=== PATIENT | male | born 1945 ===

== ENCOUNTER 2020-03-09 10:24 | Inpatient (IN) | payer OTHER ==
--- OUTSIDE RECORDS SUMMARY | 2020-03-09 10:26 | XMS REPORT | Clinical Summary ---
:1945 Author Organization [facility] Address [address] [place] [address] Care Team Providers Name Role Phone Gerald Mejias MD Primary Care Provider Allergies Active Allergy Reactions Severity Noted Date Comments Atorvastatin 08/15/2018 Altered mental status Medications Medication Sig Dispensed Refills Start Date End Date Status pravastatin TAKE 1 TABLET BY 1 08/01/2018 Active (PRAVACHOL) 20 MG MOUTH EVERYDAY AT tablet BEDTIME DULoxetine (CYMBALTA) Take 60 mg by 1 07/13/2018 Active 60 MG capsule mouth nightly. gabapentin (NEURONTIN) Take 800 mg by 0 Active 800 mg tablet mouth daily. levothyroxine TAKE 1 TABLET BY 1 05/18/2018 Active (SYNTHROID, LEVOXYL) MOUTH EVERY DAY ON 25 mcg tablet EMPTY STOMACH IN THE MORNING morPHINE (MS CONTIN) TAKE ONE CAPSULE 0 08/10/2018 Active 30 MG 12 hr tablet BY MOUTH EVERY 12 HOURS oxyCODone (ROXICODONE) Take 15 mg by 0 Active 15 MG immediate mouth every 6 release tablet (six) hours as needed. pantoprazole Take 40 mg by 1 05/15/2018 Ac tive (PROTONIX) 40 MG EC mouth daily. tablet ramipril (ALTACE) 2.5 Take 2.5 mg by 0 Active MG capsule mouth. clopidogrel (PLAVIX) Take 75 mg by 0 08/07/2018 Active 75 mg tablet mouth daily. aspirin (ECOTRIN) 81 Take 81 mg by 0 Active MG enteric coated mouth daily. tablet baclofen (LIORESAL) 10 Take 10 mg by 0 Active MG tablet mouth daily. ciprofloxacin-dexameth Administer 4 drops 0 Active asone (CIPRODEX) into the left ear 0.3-0.1 % otic 2 (two) times a suspension day. Active Problems Not on file Surgical History Surgery Date Site/Laterality Comments INNER EAR SURGERY 11 surgeries TONSILLECTOMY BACK SURGERY X4 CARDIAC CATHETERIZATION 08/16/2018 N/A Procedur e: CV LEFT HEART CATH LV GRAM WITH CORS; Surgeon: Marty Mejía MD; Loc ation: [facility] LOC ATION; Service: Cardiology; Lat erality: N/A; Medical History Medical History Date Comments Carotid stenosis, left Left ventricular diastolic dysfunction Hyperlipidemia Hypertension COPD (chronic obstructive pulmonary disease) (HCC) Hypothyroid Lumbar radiculopathy Intermittent claudication (HCC) Stroke (HCC) 2016 Family History Medical History Relation Name Comments Heart attack Brother Heart attack Brother Heart attack Father Stroke Mother Breast cancer Sister Relation Name Status Comments Brother Brother Father Mother Sister Social History Tobacco Use Types Packs/Day Years Used Date Current Every Day Smoker 1 55 Smokeless Tobacco: Never Used Tobacco Cessation: Ready to Quit: No Alcohol Use Drinks/Week oz/Week Comments Not Currently Sex Assigned at Date Recorded Not on file Last Filed Vital Signs Not on file Plan of Treatment Health Maintenance Due Date Last Done Comments COVID-19 VACCINE (#1) 1961 COLONOSCOPY SCREENING 07/06/1995 SHINGLES VACCINES (#1) 07/06/1995 65+ PNEUMOCOCCAL VACCINE (1 of 1 - PPSV23) 2010 INFLUENZA VACCINE 10/20/2019 Results Not on fileafter 03/09/2019 Advance Directives For more information, please contact: [phone] Type Date Recorded Patient Key Sander Explanati on Advance Directives, Living Will 07/18/2018 7:09 AM and Medical Power of Rn Perinatal
--- OUTSIDE RECORDS SUMMARY | 2020-03-09 10:26 | XMS REPORT | Clinical Summary ---
:1945 Author Organization [facility] Address [address] [place] [address] Care Team Providers Name Role Phone Veronika Mejias MD Primary Care Provider [phone] Allergies No Known Allergies Medications Medication Sig Dispensed Refills Start Date End Date Status ranitidine (ZANTAC) 150 Take 150 mg by 0 Active MG capsuleIndications: mouth 2 (two) gastroesophageal reflux times daily. disease ramipril (ALTACE) 2.5 MG Take 2.5 mg by 0 Active capsuleIndications: mouth daily. hypertension levothyroxine (SYNTHROID, Take 25 mcg by 0 Active LEVOTHROID) 25 MCG tablet mouth Every morning on an empty stomach . DULoxetine (CYMBALTA) 60 Take 60 mg by 0 Active MG capsule mouth nightly . gabapentin (NEURONTIN) Take 800 mg by 0 Active 800 MG tablet mouth 2 (two) times daily . morphine (MS CONTIN) 30 Take 30 mg by 0 Active MG 12 hr tablet mouth every 12 (twelve) hours. clopidogrel (PLAVIX) 75 Take 75 mg by 0 Active mg tablet mouth every morning. oxyCODONE (ROXICODONE) 15 Take 15 mg by 0 Active MG immediate release mouth every 8 tablet (eight) hours as needed . aspirin 81 MG EC tablet Take 81 mg by 0 Active mouth daily. multivitamin per tablet Take 1 tablet 0 Active by mouth daily. risperiDONE (RISPERDAL) 1 Take 1 mg by 0 Active MG tablet mouth 2 (two) times daily. Active Problems Problem Noted Date Pneumonia due to infectious organism, unspecified late rality, unspecified 12/17/2018 part of lung Hypokalemia 10/10/2017 Fecal impaction 10/09/2017 Precordial chest pain 09/26/2015 Cerebral infarction due to unspecified mechanism 02/09 Back pain 02/06/2013 Leg pain, left 02/05/2013 Degenerative lumbar spinal stenosis 11/24/2012 Hypertension Thyroid disease Lumbar stenosis Diverticulitis Arthritis Hx of colonic polyps Skin cancer Immunizations Name Administration Dates Next Due Influenza Four-QIV PF 3YR+ 12/25/2018 Influenza High Dose Preservative Free [id number]/09/2015 Tdap 05/02/2016 Family History Medical History Relation Name Comments Heart attack Father Heart disease Father Heart disease Mother Stroke Mother Relation Name Status Comments Brother Daughter Alive Father Mother Son Alive Son Alive Social History Tobacco Use Types Packs/Day Years Used Date Current Every Day Smoker Cigarettes 2 54 Sta rted: 03/21/1959 Smokeless Tobacco: Never Used Tobacco Cessation: Ready to Quit: No; Co unseling Given: Yes Alcohol Use Drinks/Week oz/Week Comments No 0.0 Occasional - buy s a 6 pack and only drinks 1 beer in a weeks time, cl aims different alcohol intake Sex Assigned at Date Recorded Not on file Last Filed Vital Signs Not on file Plan of Treatment Health Maintenance Due Date Last Done Comments COLON CANCER SCREENING COLONOSCOPY 1945 PNEUMOCOCCAL 65+ YRS (1 of - 2010 [id number]) MEDICARE ANNUAL WELLNESS (YEAR 2 or FIRST 03/22/2013 YEAR if no IPPE) INFLUENZA VACCINE (#1) 2019 12/25/2018, 02/09/2015 Implants Implanted Type Area Skills Auditor Device Shelf Model / Serial / Identifier Expiration Lot Date Allograft,Moldable April Elite 5cc Medium - [id number] 3 Bone N/A: MUSCULOSKELETAL 11/14/2013 [id number] / Implanted: Qty: 1 on 11/24/2012 by Armando Skaggs MD at [facility] Back TRANSPLANT [id number] / Allograft,Moldable April Elite 15cc Xlarge - [id number] 01 Bone N/A: MUSCULOSKELETAL 11/10/2013 [id number] / Implanted: Qty: 1 on 11/24/2012 by Armando Skaggs MD at [facility] Back TRANSPLANT [id number] / Allograft,Moldable April Elite 15cc Xlarge - [id number] 08 Bone N/A: MUSCULOSKELETAL 11/10/2013 137363 / Implanted: Qty: 1 on 11/24/2012 by Armando Skaggs MD at [facility] Back TRANSPLANT [id number] / Allograft,Moldable April Elite 15cc Xlarge - [id number] 02 Bone N/A: MUSCULOSKELETAL 11/10/2013 [id number] / Implanted: Qty: 1 on 11/24/2012 by Armando Skaggs MD at [facility] Back TRANSPLANT [id number] / Allograft,Moldable April Elite 15cc Xlarge - [id number] 10 Bone Left: MUSCULOSKELETAL 01/12/2014 [id number] / Implanted: Qty: 1 on 02/06/2013 by Armando Skaggs MD at [facility] Spine TRANSPLANT [id number] / Lumbar Allograft,Moldable April Elite 15cc Xlarge - [id number] 10 Bone N/A: MUSCULOSKELETAL 07/04/2014 129738 / Implanted: Qty: 1 on 08/15/2013 by Armando Skaggs MD at [facility] Spine TRANSPLANT [id number] / Lumbar Allograft,Moldable April Elite 5cc Medium - [id number] 7 Bone N/A: MUSCULOSKELETAL 07/30/2014 [id number] / Implanted: Qty: 1 on 08/15/2013 by Armando Skaggs MD at [facility] Spine TRANSPLANT [id number] / Lumbar Allograft,Moldable April Elite 10cc Large - [id number] 1 Bone N/A: MUSCULOSKELETAL 08/01/2014 036792 / Implanted: Qty: 1 on 08/15/2013 by Armando Skaggs MD at [facility] Spine TRANSPLANT [id number] / Lumbar Putty,Collage 5cc - [id number] Cement/ N/A: [employer] 07/18/2013 105346 / Implanted: Qty: 1 on 11/24/2012 by Armando Skaggs MD at [facility] Filler/ Back / Adhesiv [id number] 33 e Putty,Collage 15cc - [id number] Cement/ N/A: [employer] 03/19/2014 099014 / Implanted: Qty: 1 on 11/24/2012 by Armando Skaggs MD at [facility] Filler/ Back / Adhesiv [id number] 87 e Putty,Collage 5cc - [id number] Cement/ N/A: [employer] 03/19/2013 299574 / Implanted: Qty: 1 on 11/24/2012 by Armando Skaggs MD at [facility] Filler/ Back / Adhesiv [id number] 99 e Putty,Collage 15cc - [id number] Cement/ N/A: [employer] 03/19/2013 458672 / Implanted: Qty: 1 on 11/24/2012 by Armando Skaggs MD at [facility] Filler/ Back / Adhesiv [id number] 96 e Putty,Collage 15cc - [id number] Cement/ N/A: [employer] 04/19/2014 883146 / Implanted: Qty: 1 on 08/15/2013 by Armando Skaggs MD at [facility] Filler/ Spine / Adhesiv Lumbar [id number] 50 e Spacer,Peek [id number] - [id number] Spine N/A: [employer] 11/17/2016 89-9011SP / Implanted: Qty: 1 on 11/24/2012 by Armando Skaggs MD at [facility] Back / E02 Spacer,Peek [id number] - [id number] Spine N/A: [employer] 05/18/2016 89-9014SP / Implanted: Qty: 1 on 11/24/2012 by Armando Skaggs MD at [facility] Back / R03 Spacer,Peek [id number] - [id number] Spine N/A: [employer] 05/18/2016 89-9014SP / Implanted: Qty: 1 on 11/24/2012 by Armando Skaggs MD at [facility] Back / R03 Spacer,Peek [id number] - [id number] Spine N/A: [employer] 05/18/2016 89-9014SP / Implanted: Qty: 1 on 11/24/2012 by Armando Skaggs MD at [facility] Back / R03 Spacer,Peek [id number] - [id number] Spine N/A: [employer] 05/18/2016 89-9014SP / Implanted: Qty: 1 on 11/24/2012 by Armando Skaggs MD at [facility] Back / R03 Spacer,Peek [id number] - [id number] Spine N/A: [employer] 11/18/2015 89-9009SP / Implanted: Qty: 1 on 11/24/2012 by Armando Skaggs MD at [facility] Back / R01 Spacer,Peek [id number] - [id number] Spine N/A: [employer] 11/18/2015 89-9009SP / Implanted: Qty: 1 on 11/24/2012 by Armando Skaggs MD at [facility] Back / R01 Screw,Multiaxial Selftap Firebird 6.5x50mm - [id number] Spine N/A: [employer] 44-3650 / Implanted: Qty: 5 on 11/24/2012 at [facility] Spine / Lumbar Screw,Multiaxial Selftap Firebird 6.5x45mm - [id number] Spine N/A: [employer] 44-3645 / Implanted: Qty: 1 on 11/24/2012 at [facility] Spine / Lumbar Description:1 in/out Screw,Multiaxial Selftap Firebird 7.5x35mm - [id number] Spine N/A: Spine Lumbar [employer] 44-3735 / Implanted: Qty: 1 on 11/24/2012 at [facility] / Description:1 in/out Screw,Multiaxial Selftap Firebird 8.5x40mm - [id number] Spine N/A: Spine Lumbar [employer] 44-3840 / Implanted: Qty: 1 on 11/24/2012 at [facility] / Screw,Multi-Axial Selftap Firebird 6.5x55mm - [id number] Spine N/A: Spine Lumbar [employer] 44-3655 / Implanted: Qty: 2 on 11/24/2012 at [facility] / Screw,Multiaxial Selftap Firebird 7.5x45mm - [id number] Spine N/A: Spine Lumbar [employer] 44-3745 / Implanted: Qty: 1 on 11/24/2012 at [facility] / Screw,Multiaxial Selftap Firebird 7.5x40mm - [id number] Spine N/A: Spine Lumbar [employer] 44-3740 / Implanted: Qty: 1 on 11/24/2012 at [facility] / Set Screw,Firebird Ti Closure Top - [id number] Spine N/A : Spine Lumbar [employer] 44-2001 / Implanted: Qty: 10 on 11/24/2012 at [facility] / [place],Spinal Firebird Ti 5.5k313zk - [id number] Spine N/A: Spine Lumbar [employer] 52-2160 / Implanted: Qty: 1 on 11/24/2012 at [facility] / Description:bent, in/out [place],Spinal Firebird Ti 5.6g276oe - [id number] Spine N/A: Spine Lumbar [employer] 52-2140 / Implanted: Qty: 1 on 11/24/2012 at [facility] / [facility],Cross Multi Axial 55mm - [id number] Spine N/A: Spine Lumbar [employer] 55-5355 / Implanted: Qty: 1 on 11/24/2012 at [facility] / [facility],Cross Multi Axial 65mm - [id number] Spine N/A: Spine Lumbar [employer] 55-5365 / Implanted: Qty: 2 on 11/24/2012 at [facility] / Spacer,Peek [id number] - [id number] Spine N/A: Back [employer] 11/17/2016 89- 9011SP / Implanted: Qty: 1 on 11/24/2012 by Armando Skaggs MD at [facility] / E02 Set Screw,Firebird Ti Closure Top - [id number] Spine Lef t: Spine Lumbar [employer] 44-2000 / Implanted: Qty: 4 on 02/06/2013 by Armando Skaggs MD at [facility] Axial 60mm - [id number] Spine Left : Spine Lumbar [employer] 55-5360 / Implanted: Qty: 1 on 02/06/2013 by Armando Skaggs MD at [facility] Multi Axial 55mm - [id number] Spine Left : Spine Lumbar [employer] 55-5355 / Implanted: Qty: 1 on 02/06/2013 by Armando Skaggs MD at [facility] / [facility],Cross Multi Axial 65mm - [id number] Spine Left : Spine Lumbar [employer] 55-5365 / Implanted: Qty: 1 on 02/06/2013 by Armando Skaggs MD at [facility] / Set Screw,Firebird Ti Closure Top - [id number] Spine [employer] 44-2000 / Implanted: Qty: 7 on 08/15/2013 by Blane Merino PA-C at [facility] / [place],Spinal Firebird Ti Pre-Lordosed 5.4a424ps - [id number] Spi ne N/A: Spine Lumbar [employer] 52-6120 / Implanted: Qty: 1 on 08/15/2013 by Armando Skaggs MD at [facility] / [place],Spinal Firebird Ti Pre-Lordosed 5.5x80mm - [id number] Spine N/A: Spine Lumbar [employer] 52-6080 / Implanted: Qty: 1 on 08/15/2013 by Armando Skaggs MD at [facility] / [facility],Cross Multi Axial 60mm - [id number] Spine N/A: Spine Lumbar [employer] 55-5360 / Implanted: Qty: 1 on 08/15/2013 by Armando Skaggs MD at [facility] / [facility],Cross Multi Axial 55mm - [id number] Spine N/A: Spine Lumbar [employer] 55-5355 / Implanted: Qty: 1 on 08/15/2013 by Armando Skaggs MD at [facility] / Results Not on fileafter 03/09/2019 Insurance Payer Benefit Plan Subscriber ID Effective Phone Address Typ e / Group Dates [employer]ET[employer] - AETNA [id number] 2017-Prese [phone] [address] [employer] MEDICARE MGD MEDICARE OPEN nt 12 [id number] Non-Contr [place] [phone] AET[employer] - AETNA [id number] 03/21/2018-Prese [phone] [address] MEDICARE D MEDICARE HMO nt 12 [id number] [place] [address] Advance Directives For more information, please contact: [phone] Code Status Date Activated Date Inactivated Comments Full Code 12/17/2018 11:12 PM 12/25/2018 5:51 PM This code status was determined by: Patient Full Code 10/09/2017 7:26 PM 10/11/2017 1:43 PM This code status was determined by: Patient Full Code 09/26/2015 8:47 PM 09/27/2015 6:46 PM This code status was determined by: Patient Full Code 02/09/2015 1:59 AM 02/10/2015 9:15 PM This code status was determined by: Patient Code ONE 08/15/2013 5:26 PM 08/17/2013 3:00 PM All possib le means of support, including: cardi ac massage, mechanical ventilation, and defibrillation will be used to suppo rt life.
--- OUTSIDE RECORDS SUMMARY | 2020-03-09 10:29 | XMS REPORT | Continuity of Care Document ---
:1945 Author Organization [facility] t Address [address] [place] [address] Care Team Providers Name Role Phone Randell HARRIS, Jania Duarte Primary Care Physician [phone] STEFANO ROMERO Attending Clinician Unavailable SYMONE CASAS Attending Clinician Unavailable BAY ESTRADA Attending Clinician Unavailable ANGELA Admitting Clinician Unavailable CARINA Admitting Clinician Unavailable Payers Payer Name Policy Type Policy Number Effective Date Expiration Date S ource Problems Condition Condition Condition Status Onset Resolution Last Treating Co mments Source Name Details Category Date Date Treatment Clinician Date Pneumonia Pneumonia Disease Active [facility] infectious infectious 00:00: Me dical organism, organism, 00 Cent er unspecifie unspecifie d d laterality laterality , , unspecifie unspecifie d part of d part of lung lung Hypokalemi Hypokalemi Disease Active [facility] a a 10[facility]10 [facility] Center Fecal Fecal Disease Active [facility] impaction impaction 10-09 [facility] - 00:00: Medical 00 Center Precordial Precordial Disease Active [facility] chest pain chest pain 09-25 Mellisa kes - 00:00: Medical 00 [place] Cerebral Cerebral Disease Active 2014-03 [facility] infarction infarction 04-[address] 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 St disease disease [facility] Lumbar Lumbar Disease Active [facility] stenosis stenosis [facility] Diverticul Diverticul Disease Active [facility] itis itis [facility] Arthritis Arthritis Disease Active [facility] Hx of Hx of Disease Active [facility] colonic colonic [facility] polyps polyps [facility] Skin Skin Disease Active [facility] cancer cancer [facility] Allergies, Adverse Reactions, Alerts Allergy Allergy Status Severity Reaction(s) Onset Inactive Treating Comm ents Source Name Type Date Date Clinician No Known DA Active U [facility] Allergie 8-30 Pak s 00:00: Health 00 are [place] Atorvast Propensi Active Altered [place] at[place] ty to 5-28 mental Methodi adverse 00:00: status st reaction 00 s to drug No Known DA Active U 2012-03 [facility] Allergie 0-05 [place] [facility] 00:00: d 00 Medical [place] Family History Family Member Diagnosis Comments Start Date Stop Date Source Natural brother Heart attack [facility] Natural father Heart attack [facility] Natural father Heart disease [facility] Natural mother Stroke [facility] Natural mother Heart disease [facility] Natural mother Stroke [facility] Natural sister Breast cancer [facility] Social History Social Habit Start Date Stop Date Quantity Comments Source History of tobacco 1959-03-[address] [facility] use 00:00:00 smoker [facility] Sex Assigned At [facility] Cigarettes smoked 2017-10-09 2017-10-09 [facility] - current (pack per 00:00:00 00:00:00 Medical Center day) - Reported Cigarette 2017-10-09 2017-10-09 [facility] 00:[facility]:00 00:00:00 [facility] Tobacco use and 2017-10-09 2017-10-[address] [address] Pak kes - exposure 00:00:00 00:00:00 [facility] Alcohol intake 2017-10-09 2017-10-09 Current [facility] Antwan es - 00:00:00 00:00:00 non-drinker of Medical nter alcohol (finding) Alcohol Comment 2015-09-26 2015-09-26 Occasional - buys [facility] - 00:00:00 00:00:00 a 6 pack and only [facility] drinks 1 beer in a weeks time, claims different alcohol intake Smoking Status Start Date Stop Date Source Current every day smoker 2017-10-09 00:00:00 [facility] [place] [facility] Medications Ordered Filled Start Stop Current Ordering Indication Dosage Frequency Signature Comments Components Source Medication Medication Date Date Medication? Clinician (SIG) Name Name ranitidine 2018-03 Yes gastroesoph 150mg Q.5D Take [address] (ZANTAC) 0-07 ageal mg by [facility] - 150 MG 15:51: reflux mouth 2 Medica l capsule 34 disease (two) Center times daily. ramipril 2018-03 Yes hypertensio 2.5mg QD Take 2.[address] (ALTACE) 0-07 n mg by [facility] - 2.5 MG 15:51: mouth Medical capsule 34 daily. [place] levothyroxi 2018-03 Yes 25ug Take [address] ne 0-07 mcg by [facility] - (SYNTHROID, 15:51: mouth Medic al LEVOTHROID) 34 Every Center 25 MCG morning on tablet an empty stomach . DULoxetine 2018-03 Yes 60mg QD Take [address] (CYMBALTA) 0-07 by mouth [facility] - 60 MG 15:51: nightly . Medical capsule 34 Center gabapentin 2018-03 Yes 800mg Q.5D Take [address] (NEURONTIN) 0-07 mg by [facility] - 800 MG 15:51: mouth 2 Medical tablet 34 (two) Center times daily . morphine 2018-03 Yes 30mg Take [address] (MS CONTIN) 0-07 by mouth Luke s - 30 MG 12 hr 15:51: every 12 Me dical tablet 34 (twelve) Center hours. clopidogrel 2018-03 Yes 75mg QD Take [address] (PLAVIX) 75 0-07 by mouth Luke s - mg tablet 15:51: every Medical 34 morning. Center oxyCODONE 2018-03 Yes 15mg Take [address] (ROXICODONE 0-07 by mouth Luke s - ) 15 MG 15:51: every 8 Medical immediate 34 (eight) Center release hours as tablet needed . aspirin 81 2018-03 Yes 81mg QD Take [address] MG EC 0-07 by mouth [facility] - tablet 15:51: daily. Medical 34 Center multivitami 2018-03 Yes 1{tbl} QD Take [address] n per 0-07 tablet by [facility] - tablet 15:51: mouth Medical 34 daily. Center risperiDONE 2018-03 Yes 1mg Q.5D Take [address] (RISPERDAL) 0-07 by mouth 2 Mellisa kes - 1 MG tablet 15:51: (two) Medic al 34 times Center daily. gabapentin Yes 800mg QD Take 800 [place] (NEURONTIN) 5-29 mg by Methodi 800 mg 18:58: mouth st tablet 48 daily. oxyCODone Yes 15mg Q6H Take 15 mg [place] (ROXICODONE 5-29 by mouth Meth ricardo ) 15 MG 18:58: every 6 st immediate 48 (six) release hours as tablet needed. ramipril Yes 2.5mg Take 2.5 [place] (ALTACE) 5-29 mg by Methodi 2.5 MG 18:58: mouth. st capsule 48 aspirin Yes 81mg QD Take 81 mg [place] (ECOTRIN) 5-29 by mouth Method i 81 MG 18:58: daily. st enteric 48 coated tablet baclofen Yes 10mg Take 10 mg [place]ca [facility] (LIORESAL) 5-29 by mouth Metho di 10 MG 18:58: daily. st tablet 48 ciprofloxac Yes 4[drp] Q.5D Administer Pak in-dexameth 5-29 4 drops Metho di asone 18:58: into the st (CIPRODEX) 48 left ear 2 0.3-0.1 % (two) otic times a suspension day. morPHINE Yes TAKE ONE [place] (MS CONTIN) 5-23 CAPSULE BY Me thodi 30 MG 12 hr 00:00: MOUTH st tablet 00 EVERY 12 HOURS clopidogrel 2018- Yes 75mg QD Take 75 mg Pak (PLAVIX) 75 5-20 by mouth Meth ricardo mg tablet 00:00: daily. st 00 pravastatin 2018- Yes TAKE 1 [place] (PRAVACHOL) 5-14 TABLET BY Met hodi 20 MG 00:00: MOUTH st tablet 00 EVERYDAY AT BEDTIME DULoxetine 2018- Yes 60mg QD Take 60 mg [place] (CYMBALTA) 4-25 by mouth Metho di 60 MG 00:00: nightly. st capsule 00 levothyroxi Yes TAKE 1 [place] 2-28 TABLET BY Methodi (SYNTHROID, 00:00: MOUTH st LEVOXYL) 25 00 EVERY DAY mcg tablet ON EMPTY STOMACH IN THE MORNING pantoprazol 2018- Yes 40mg QD Take 40 mg Pak e 2-25 by mouth Methodi (PROTONIX) 00:00: daily. st 40 MG EC 00 tablet Immunizations Ordered Immunization Filled Immunization Date Status Commen ts Source Name Name Influenza Four-QIV 2018-12-[address] [facility] - PF 3YR+ 00:00:00 [facility] Tdap 2016-05-[address] [facility] - 00:00:00 [facility] Influenza High Dose 2015-02-09 [facility] - Preservative Free 00:00:00 [facility] [id number] Procedures This patient has no known procedures. Plan of Care Planned Activity Planned Date Details Comments Source Future Scheduled 2019-11-20 INFLUENZA VACCINE (#1) [facility] Test 00:00:00 [code = INFLUENZA Medical Ce nter VACCINE (#1)] Future Scheduled 2019-10-20 INFL[place]ENZA VACCINE [place] [facility] 00:00:00 [code = INFLUENZA VACCINE] Future Scheduled 2013-03-[address] [facility] - Test 00:00:00 WELLNESS (YEAR 2 or Medical Center FIRST YEAR if no IPPE) [code = MEDICARE ANNUAL WELLNESS (YEAR 2 or FIRST YEAR if no IPPE)] Future Scheduled 2010 65+ PNEUMOCOCCAL [facility] 00:00:00 VACCINE (1 of 1 - PPSV23) [code = 65+ PNEUMOCOCCAL VACCINE (1 of 1 - PPSV23)] Future Scheduled 2010 PNEUMOCOCCAL 65+ Y[facility] - Test 00:00:00 (1 of 1 - [facility] [id number] PCV13) [code = PNEUMOCOCCAL 65+ YRS (1 of 1 - [id number] PCV13)] Future Scheduled 1995-07-06 COLONOSCOPY SCREENING [place] [facility] 00:00:00 [code = COLONOSCOPY SCREENING] Future Scheduled 1995-07-06 SHINGLES VACCINES (#1) [place] [facility] 00:00:00 [code = SHINGLES VACCINES (#1)] Future Scheduled 1961 COVID-19 VACCINE (#1) [place] [facility] 00:00:00 [code = COVID-19 VACCINE (#1)] Future Scheduled [address] [facility] - Test 00:00:00 malignant neoplasm of Medica l Center colon (procedure) [code = 400579678] Results Test Description Test Time Test Comments Results Result Comments Source COVID 19 Asymptomatic IH AG 2019-12-13 12:17:00 Test Item Value Reference Range Interpretation Comme nts COVID 19 Asymptomatic IH AG NEGATIVE Negative NEGATIVE RESULTS SHOULD BE TREATED (test code = COVNONPUIAG) PRESUMPTIVE ANDCONFIRMED WTIH A MOLECULAR ASSAY , IF NECESSARY FOR PATIENTMANAGEME NT. NEGATIVE RESULTS DO NOT RULE OUT COVID-19 ANDSHOULD NOT BE USED THE SOLE BASIS FOR TREATMENT ORPAT IENT MANAGEMENT DECISIONS, INCL UDING INFECTION CONTROLDECISION S. NEGATIVE RESULTS SHOULD BE CONSI DERED IN THECONTEXT OF A PATIENT'S RECENT EXPOSURES, HISTORY AND THE PRESENCE OF CLINICAL SIGNS AND SYMPT OMS CONSISTENT WITHCOVID-19. COVID 19 Asymptomatic IH [id number] 15:21:00 Test Item Value Reference Range Interpretation Comments COVID 19 Asymptomatic NEGATIVE Negative NEGAT ARMANDO RESULTS IH AG (test code = SHOULD BE TREATED COVNONPUIAG) PRESUMPTIVE ANDCONFIRMED WT IH A MOLECULAR ASSAY , IF NECESSARY FOR PATIENTMANAGEME NT. NEGATIVE RESULT S DO NOT RULE OUT CO VID-19 ANDSHOULD NOT B E USED THE SOLE BAS IS FOR TREATMENT ORPAT IENT MANAGEMENT DECI SIONS, INCLUDING INFEC TION CONTROLDECISION S. NEGATIVE RESULT S SHOULD BE CONSI DERED IN THECONTEXT O F A PATIENT'S RECEN T EXPOSURES, HIST ORY AND THEPRESENCE OF CLINICAL SIGNS AND SYMPTOMS CONSIS TENT WITHCOVID-19. VANCOMYCIN [id number] 17:34:00 Test Item Value Reference Range Interpretation Comments VANCOMYCIN TROUGH (test code = 18.7 ug/ml 10.0-20.0 N VANCT) [id number] 13:47:00 Test Item Value Reference Range Interpretation Comments POTASSIUM (test code = K) 3.9 MMOL/L 3.6-5.2 N GROSSLY HEMOLYZEDVANCOMYCIN [id number] 05:54:00 Test Item Value Reference Range Interpretation Comments VANCOMYCIN TROUGH (test code = 15.7 ug/ml 10.0-20.0 N VANCT) VANCOMYCIN [id number] 17:50:00 Test Item Value Reference Range Interpretation Comments VANCOMYCIN TROUGH (test code = 19.9 ug/ml 10.0-20.0 N VANCT) [id number] 13:18:00 Test Item Value Reference Range Interpretation Comments CREATININE (test code = CREAT) 0.69 mg/dL 0.60-1.30 N CBC W/O [id number] 13:06:00 Test Item Value Reference Range Interpretation Comments WHITE BLOOD CELL (test code = WBC) 9.88 K/mm3 5.0-12.0 N RED BLOOD CELL (test code = RBC) 4.59 M/mm3 4.70-6.10 L HEMOGLOBIN (test code = HGB) 13.3 G/DL 14.0-18.0 L HEMATOCRIT (test code = HCT) 39.6 % 38.8-50.0 N MEAN CELL VOLUME (test code = MCV) 86 fL 80-94 N MEAN CELL HGB (test code = MCH) 29.0 PGM 27-31 N MEAN CELL HGB CONCENTRATION (test 33.6 G/DL 33-37 N code = MCHC) RED CELL DISTRIBUTION WIDTH (test 12.7 % 11.6-16.2 N code = RDW) PLATELET COUNT (test code = PLT) 251 K/mm3 130-400 N VANCOMYCIN [id number] 18:03:00 Test Item Value Reference Range Interpretation Comments VANCOMYCIN TROUGH (test code = 15.4 ug/ml 10.0-20.0 N VANCT) BASIC METABOLIC [id number] 06:42:00 Test Item Value Reference Range Interpretation Comments SODIUM (test code 143 mmol/L 136-145 N = NA) POTASSIUM (test 3.1 MMOL/L 3.6-5.2 L code = K) CHLORIDE (test 108 MMOL/L 98-110 N code = CL) CARBON DIOXIDE 28 mEq/L 24-32 N (test code = CO2) GLUCOSE (test code 117 mg/dL 70-110 H = GLU) BLOOD UREA 11 mg/dL 7-18 N NITROGEN (test code = BUN) GLOMERULAR >=60 max >60 The estimated FILTRATION RATE estimate glomerular (test code = GFR) filtration rate is computed usingpatient ra ce, age (>18), sex, and serum creatinin e. If anyof the neede d data elements a re missing the Laboratory ting ot compute an estimation of t he glomerular filtration rate . CREATININE (test 0.79 mg/dL 0.60-1.30 N code = CREAT) CALCIUM (test code 8.4 mg/dL 8.6-10.3 L = CA) BASIC METABOLIC [id number] 06:39:00 Test Item Value Reference Range Interpretation Comments SODIUM (test code mmol/L 136-145 = NA) POTASSIUM (test 3.1 MMOL/L 3.6-5.2 L code = K) CHLORIDE (test MMOL/L 98-110 code = CL) CARBON DIOXIDE mEq/L 24-32 (test code = CO2) GLUCOSE (test code mg/dL 70-110 = GLU) BLOOD UREA 11 mg/dL 7-18 N NITROGEN (test code = BUN) GLOMERULAR >=60 max >60 The estimated FILTRATION RATE estimate glomerular (test code = GFR) filtration rate is computed usingpatient ra ce, age (>18), sex, and serum creatinin e. If anyof the neede d data elements a re missing the Laboratory ting ot compute an estimation of t he glomerular filtration rate . CREATININE (test 0.79 mg/dL 0.60-1.30 N code = CREAT) CALCIUM (test code mg/dL 8.6-10.3 = CA) COVID 19 INHOUSE [id number] 05:54:00 Test Item Value Reference Range Interpretation Comments COVID 19 INHOUSE AG NEGATIVE NEGATIVE NEGATIV E RESULTS SHOULD (test code = BE TREATED P RESUMPTIVE [id number]) ANDCONFIRMED WT IH A MOLECULAR ASSAY , IF NECESSARY FOR PATIENTMANAGEME NT. NEGATIVE RESULT S DO NOT RULE OUT COVID- 19 ANDSHOULD NOT B E USED THE SOLE BASIS FOR TREATMENT ORPAT IENT MANAGEMENT DECI SIONS, INCLUDING INFEC TION CONTROLDECISION S. NEGATIVE RESULT S SHOULD BE CONSIDERED I N THECONTEXT OF A PATIENT'S RECENT EXPOSURE S, HISTORY AND THEPRESENCE OF CLINICAL SIGNS AND SYMPTOMS CONSIS TENT WITHCOVID-19. - XR CHEST 1 [id number] 04:38:00Patient Name: CHIVO INFANTE Unit No: [id number] EXAMS: CPT: [id number] XR CHEST 1 V [id number] Portable chest, 11/19/2019. Clinical: Leukocytosis. Comment: The heart, mediastinum, hilar regions and pulmonary vasculature appear within normal limits. There are bilateral diffuse pulmonary opacities. There is no evidence of pneumothorax. The regional skeleton is unchanged. IMPRESSION: Bilateral diffuse pulmonary opacities. at 0438 Reported and signed by: Xavier Rivero MD CC: Mehul Maurice MD Technologist: Bay Ybarra Time: DAP (Gy m2): Air Kerma (mGy): Trscr Dt/Tm: 11/19/2019 (0438) by:[email or web address] Orig Print D/T: S: 11/19/2019 (0441) BATCH NO: N/A Name: CHIVO INFANTE [facility] [place] Phys: [email or web address] - Mehul Maurice [address] [facility] : 1945 Age: 74 Sex: [place], [place] Loc: T.ERS Exam Date: 11/19/2019 Status: REG ER PH: FAX: PAGE 1 Signed ReportDRUGS OF ABUSE SCREEN [id number] 03:23:00 Test Item Value Reference Range Interpretation Comments UR COCAINE (test code = COCAU) NEGATIVE NEGATIVE UR METHAMPHETAMINE (test code = NEGATIVE NEGATIVE METHAMPHU) UR CANABINOIDS (test code = CANU) NEGATIVE NEGATIVE UR AMPHETAMINE (test code = AMPHU) NEGATIVE NEGATIVE UR BARBITURATE (test code = BARBQLU) NEGATIVE NEGATIVE UR BENZODIAZEPINE (test code = POSITIVE NEGATIVE A BENZU) METHADONE (test code = METHDU) NEGATIVE NEGATIVE PROPOXYPHENE SCREEN (test code = NEGATIVE NEGATIVE PROPXSQ) UR OPIATES QUAL (test code = NEGATIVE NEGATIVE OPIAQLU) OXYCODONE (test code = OXYCOD) NEGATIVE NEGATIVE UR TRICYCLICS (test code = TRICYCU) NEGATIVE NEGATIVE UR PHENCYCLIDINE (PCP) (test code = NEGATIVE NEGATIVE PHENCU) UR BUPRENORPHINE QUAL (test code = NEGATIVE NEGATIVE BUPRESCRT) BASIC METABOLIC [id number] 03:13:00 Test Item Value Reference Range Interpretation Comments SODIUM (test code 144 mmol/L 136-145 N = NA) POTASSIUM (test 3.2 MMOL/L 3.6-5.2 L code = K) CHLORIDE (test 104 MMOL/L 98-110 N code = CL) CARBON DIOXIDE 28 mEq/L 24-32 N (test code = CO2) GLUCOSE (test code 115 mg/dL 70-110 H = GLU) BLOOD UREA 22 mg/dL 7-18 H NITROGEN (test code = BUN) GLOMERULAR >=60 max >60 The estimated FILTRATION RATE estimate glomerular (test code = GFR) filtration rate is computed usingpatient ra ce, age (>18), sex, and serum creatinin e. If anyof the neede d data elements a re missing the Laboratory ting ot compute an estimation of t he glomerular filtration rate . CREATININE (test 0.77 mg/dL 0.60-1.30 N code = CREAT) CALCIUM (test code 9.7 mg/dL 8.6-10.3 N = CA) CREATINE KINASE (CK)2019-11-19 03:13:00 Test Item Value Reference Range Interpretation Comments CREATINE KINASE (CK) 597 UNITS/L 25-140 H UNICEL DxC 600i:DUE TO (test code = CK) THE INSTRUM ENT'S ESTABLISHED SUPRIYA EAR RANGES, ANYPATI ENT RESULT THAT IS ABOVE THE HIGH LINEAR RANGE, MUST BEREPORTED >24,000 IU/L. [id number] 03:13:00 Test Item Value Reference Range Interpretation Comments ACETAMINOPHEN (test code = ACET) < 10.0 ug/mL 10.0-25.0 L [id number] 03:13:00 Test Item Value Reference Range Interpretation Comments SALICYLATE (test code = PEPPER) < 4.0 mg/dL 0.0-30.0 N [id number] 03:13:00 Test Item Value Reference Range Interpretation Comments ALCOHOL (test code = < 5.0 mg/dl 0.0-80.0 N ALC) ~~~~~~~~~~~~~~~ ~~~~~~~ ~~~~~~~~~~~~~~~ ~~~~~~~ ~~~~~~ RESU LTS ARE TO BE USED FOR MEDICAL PURPOSES ONLY.F OR LEGAL PURPOSES THE SPECIMEN MUST B E COLLECTED BY A CHAINOF CUSTODY. LEGAL TESTING IS NOT PERFORME D BY THIS FACILITY. ~~~~~~~~~~~~~~~ ~~~~~~~ ~~~~~~~~~~~~~~~ ~~~~~~~ ~~~~~~ UA RFLX MICR CULT IF [id number] 03:05:00 Test Item Value Reference Range Interpretation Comments UA COLOR (test code = COLU) Yellow YELLOW UA APPEARANCE (test code = CLEAR CLEAR APPU) UA GLUCOSE DIPSTICK (test code NEG MG/DL NEGATIVE = DGLUU) UA BILIRUBIN DIPSTICK (test NEG NEGATIVE code = BILU) UA KETONE DIPSTICK (test code 1+ MG/DL NEGATIVE A = KETU) UA SPECIFIC GRAVITY (test code 1.031 1.000-1.030 A = SGU) UA BLOOD DIPSTICK (test code = TRACE NEGATIVE A TERE) UA PH DIPSTICK (test code = 6.0 4.5-8.5 JESU) UA PROTEIN DIPSTICK (test code 1+ MG/DL NEGATIVE A = PROU) UA UROBILINOGEN DIPSTICK (test NORMAL EU/dL <=1.0 code = URO) UA NITRITE DIPSTICK (test code NEG NEGATIVE = MANDA) UA LEUKOCYTE ESTERASE DIPSTICK NEG NEGATIVE (test code = LEUU) UA WBC (test code = WBCU) 0-3 /HPF 0-3 UA RBC (test code = RBCU) 3-5 /HPF 0-3 A UA WBC CLUMPS (test code = RARE HPF NONE SEEN A WBCUCL) UA BACTERIA (test code = BACU) NONE SEEN /HPF NONE SEEN UA SQUAMOUS CELLS (test code = NONE SEEN /HPF NONE-FEW SQU) UA MUCUS (test code = MUCU) FEW /LPF NONE-FEW Indication for culture: Temperature > 100.4 FBASIC METABOLIC PANEL 2019-11-19 03:05:00 Test Item Value Reference Range Interpretation Comments SODIUM (test code = NA) 144 mmol/L 136-145 N POTASSIUM (test code = K) 3.2 MMOL/L 3.6-5.2 L CHLORIDE (test code = CL) 104 MMOL/L 98-110 N CARBON DIOXIDE (test code = CO2) 28 mEq/L 24-32 N GLUCOSE (test code = GLU) 115 mg/dL 70-110 H BLOOD UREA NITROGEN (test code = mg/dL 7-18 BUN) GLOMERULAR FILTRATION RATE (test >60 code = GFR) CREATININE (test code = CREAT) mg/dL 0.60-1.30 CALCIUM (test code = CA) 9.7 mg/dL 8.6-10.3 N CREATINE KINASE (CK)2019-11-19 03:05:00 Test Item Value Reference Range Interpretation Comments CREATINE KINASE (CK) (test code = UNITS/L 25-140 CK) [id number] 03:05:00 Test Item Value Reference Range Interpretation Comments ACETAMINOPHEN (test code = ACET) ug/mL 10.0-25.0 [id number] 03:05:00 Test Item Value Reference Range Interpretation Comments SALICYLATE (test code = PEPPER) mg/dL 0.0-30.0 [id number] 03:05:00 Test Item Value Reference Range Interpretation Comments ALCOHOL (test code = ALC) mg/dl 0.0-80.0 BASIC METABOLIC [id number] 03:04:00 Test Item Value Reference Range Interpretation Comments SODIUM (test code = NA) mmol/L 136-145 POTASSIUM (test code = K) 3.2 MMOL/L 3.6-5.2 L CHLORIDE (test code = CL) MMOL/L 98-110 CARBON DIOXIDE (test code = CO2) mEq/L 24-32 GLUCOSE (test code = GLU) mg/dL 70-110 BLOOD UREA NITROGEN (test code = mg/dL 7-18 BUN) GLOMERULAR FILTRATION RATE (test >60 code = GFR) CREATININE (test code = CREAT) mg/dL 0.60-1.30 CALCIUM (test code = CA) mg/dL 8.6-10.3 CREATINE KINASE (CK)2019-11-19 03:04:00 Test Item Value Reference Range Interpretation Comments CREATINE KINASE (CK) (test code = UNITS/L 25-140 CK) [id number] 03:04:00 Test Item Value Reference Range Interpretation Comments ACETAMINOPHEN (test code = ACET) ug/mL 10.0-25.0 [id number] 03:04:00 Test Item Value Reference Range Interpretation Comments SALICYLATE (test code = PEPPER) mg/dL 0.0-30.0 [id number] 03:04:00 Test Item Value Reference Range Interpretation Comments ALCOHOL (test code = ALC) mg/dl 0.0-80.0 UA RFLX MICR CULT IF [id number] 03:03:00 Test Item Value Reference Range Interpretation Comments UA COLOR (test code = COLU) Yellow YELLOW UA APPEARANCE (test code = APPU) CLEAR CLEAR UA GLUCOSE DIPSTICK (test code = NEG MG/DL NEGATIVE DGLUU) UA BILIRUBIN DIPSTICK (test code NEG NEGATIVE = BILU) UA KETONE DIPSTICK (test code = 1+ MG/DL NEGATIVE A KETU) UA SPECIFIC GRAVITY (test code = 1.031 1.000-1.030 A SGU) UA BLOOD DIPSTICK (test code = TRACE NEGATIVE A TERE) UA PH DIPSTICK (test code = JESU) 6.0 4.5-8.5 UA PROTEIN DIPSTICK (test code = 1+ MG/DL NEGATIVE A PROU) UA UROBILINOGEN DIPSTICK (test NORMAL EU/dL <=1.0 code = URO) UA NITRITE DIPSTICK (test code = NEG NEGATIVE MANDA) UA LEUKOCYTE ESTERASE DIPSTICK NEG NEGATIVE (test code = LEUU) Indication for culture: Temperature > 100.4 FCBC W/AUTO [id number] 03:01:00 Test Item Value Reference Range Interpretation Comments WHITE BLOOD CELL (test code = 13.39 K/mm3 5.0-12.0 H WBC) RED BLOOD CELL (test code = RBC) 4.80 M/mm3 4.70-6.10 N HEMOGLOBIN (test code = HGB) 13.9 G/DL 14.0-18.0 L HEMATOCRIT (test code = HCT) 42.2 % 38.8-50.0 N MEAN CELL VOLUME (test code = 88 fL 80-94 N MCV) MEAN CELL HGB (test code = MCH) 29.0 PGM 27-31 N MEAN CELL HGB CONCENTRATION (test 32.9 G/DL 33-37 L code = MCHC) RED CELL DISTRIBUTION WIDTH (test 12.7 % 11.6-16.2 N code = RDW) PLATELET COUNT (test code = PLT) 285 K/mm3 130-400 N MEAN PLATELET VOLUME (test code = 9.6 fl 7.4-10.4 N MPV) NEUTROPHIL % (test code = NT%) 69.9 % 43-65 H IMMATURE GRANULOCYTE % (test code 0.7 % 0.0-2.0 N = IG%) LYMPHOCYTE % (test code = LY%) 17.8 % 20.5-45.5 L MONOCYTE % (test code = MO%) 10.0 % 5.5-11.7 N EOSINOPHIL % (test code = EO%) 1.1 % 0.9-2.9 N BASOPHIL % (test code = BA%) 0.5 % 0.2-1.0 N NUCLEATED RBC % (test code = 0.0 % 0-1.0 N NRBC%) NEUTROPHIL # (test code = NT#) 9.35 K/mm3 2.2-4.8 H LYMPHOCYTE # (test code = LY#) 2.39 K/mm3 1.3-2.9 N MONOCYTE # (test code = MO#) 1.34 K/mm3 0.3-0.8 H EOSINOPHIL # (test code = EO#) 0.15 K/MM3 0.0-0.2 N BASOPHIL # (test code = BA#) 0.07 K/mm3 0.0-0.1 N COMPREHENSIVE METABOLIC [id number] 03:49:00 Test Item Value Reference Range Interpretation Comments SODIUM (test code = 135 mmol/L 137-145 L NA) POTASSIUM (test code 3.4 mmol/L 3.4-5.0 N = K) CHLORIDE (test code 99 mmol/L 98-107 N = CL) CARBON DIOXIDE (test 26 mmol/L 22-30 N code = CO2) GLUCOSE (test code = 110 mg/dL 74-106 H GLU) BLOOD UREA NITROGEN 15 mg/dL 9-20 N (test code = BUN) GLOMERULAR 140 >60 The estimated FILTRATION RATE glomerular f iltration (test code = GFR) rate is co mputed usingpatient ra ce, age (>18), sex, and serum creatinine. If anyof the needed data elements are mi ssing the Laboratory cannot compute an eve mation of the glomerul ar filtration rate . CREATININE (test 0.6 mg/dL 0.7-1.3 L code = CREAT) TOTAL PROTEIN (test 7.8 g/dL 6.3-8.2 N code = PROT) ALBUMIN (test code = 4.3 g/dL 3.5-5.0 N ALB) CALCIUM (test code = 9.3 mg/dL 8.4-10.2 N CA) BILIRUBIN TOTAL 0.6 mg/dL 0.2-1.3 N "A positive bias may (test code = BILT) occur for patients taking Eltrombo pag(a bone marrow sti mulant used to treat thrombocytopeni a andaplastic ane ryan)." BILIRUBIN CONJUGATED 0 mg/dL 0-0.3 N "A posi tive bias may (test code = BILCON) occur f or patients taking Eltrombo pag(a bone marrow sti mulant used to treat thrombocytopeni a andaplastic ane ryan)." C ONJUGATE D BILIRUBIN IS THE REPLACEMENT ASS AY FOR DIRECTBILIRUBIN . BILIRUBIN 0.3 mg/dL 0-1.1 N UNCONJUGATED (test code = BILUNC) SGOT/AST (test code 40 U/L 15-46 N = AST) SGPT/ALT (test code 21 U/L 0-34 N = ALT) ALKALINE PHOSPHATASE 76 U/L 38-126 N (test code = ALKP) CBC W/AUTO [id number] 03:32:00 Test Item Value Reference Range Interpretation Comments WHITE BLOOD CELL (test code = 10.1 x10 3/uL 5.0-12.0 N WBC) RED BLOOD CELL (test code = 4.88 x10 6/uL 4.70-6.10 N RBC) HEMOGLOBIN (test code = HGB) 14.1 g/dL 14.0-18.0 N HEMATOCRIT (test code = HCT) 44.3 % 37.0-49.0 N MEAN CELL VOLUME (test code = 91 fL 80-94 N MCV) MEAN CELL HGB (test code = MCH) 28.9 pg 27-31 N MEAN CELL HGB CONCENTRATION 31.8 g/dL 33-37 L (test code = MCHC) RED CELL DISTRIBUTION WIDTH 12.9 % 11.5-15.5 N (test code = RDW) PLATELET COUNT (test code = 246 x10 3/uL 130-400 N PLT) MEAN PLATELET VOLUME (test code 9.1 fL 9.4-16.4 L = MPV) NEUTROPHIL % (test code = NT%) 72.2 % 43-65 H IMMATURE GRANULOCYTE % (test 0.4 % 0.0-2.0 N code = IG%) LYMPHOCYTE % (test code = LY%) 16.9 % 20.5-45.5 L MONOCYTE % (test code = MO%) 8.4 % 5.5-11.7 N EOSINOPHIL % (test code = EO%) 1.8 % 0.9-2.9 N BASOPHIL % (test code = BA%) 0.3 % 0.2-1.0 N NUCLEATED RBC % (test code = 0.0 % 0-1.0 N NRBC%) NEUTROPHIL # (test code = NT#) 7.28 x10 3/uL 2.2-4.8 H IMMATURE GRANULOCYTE # (test 0.04 x10 3/uL 0-0.03 H code = IG#) LYMPHOCYTE # (test code = LY#) 1.71 x10 3/uL 1.3-2.9 N MONOCYTE # (test code = MO#) 0.85 x10 3/uL 0.3-0.8 H EOSINOPHIL # (test code = EO#) 0.18 x10 3/uL 0.0-0.2 N BASOPHIL # (test code = BA#) 0.03 x10 3/uL 0.0-0.1 N COMPREHENSIVE METABOLIC [id number] 07:04:00 Test Item Value Reference Range Interpretation Comments SODIUM (test code = 139 mmol/L 137-145 N NA) POTASSIUM (test code 3.7 mmol/L 3.4-5.0 N = K) CHLORIDE (test code 103 mmol/L 98-107 N = CL) CARBON DIOXIDE (test 26 mmol/L 22-30 N code = CO2) GLUCOSE (test code = 120 mg/dL 74-106 H GLU) BLOOD UREA NITROGEN 24 mg/dL 9-20 H (test code = BUN) GLOMERULAR 100 >60 The estimated FILTRATION RATE glomerular f iltration (test code = GFR) rate is co mputed usingpatient ra ce, age (>18), sex, and serum creatinine. If anyof the needed data elements are mi ssing the Laboratory cannot compute an eve mation of the glomerul ar filtration rate . CREATININE (test 0.8 mg/dL 0.7-1.3 N code = CREAT) TOTAL PROTEIN (test 7.6 g/dL 6.3-8.2 N code = PROT) ALBUMIN (test code = 4.1 g/dL 3.5-5.0 N ALB) CALCIUM (test code = 9.2 mg/dL 8.4-10.2 N CA) BILIRUBIN TOTAL 0.5 mg/dL 0.2-1.3 N "A positive bias may (test code = BILT) occur for patients taking Eltrombo pag(a bone marrow sti mulant used to treat thrombocytopeni a andaplastic ane ryan)." BILIRUBIN CONJUGATED 0 mg/dL 0-0.3 N "A posi tive bias may (test code = BILCON) occur f or patients taking Eltrombo pag(a bone marrow sti mulant used to treat thrombocytopeni a andaplastic ane ryan)." C ONJUGATE D BILIRUBIN IS THE REPLACEMENT ASS AY FOR DIRECTBILIRUBIN . BILIRUBIN 0.2 mg/dL 0-1.1 N UNCONJUGATED (test code = BILUNC) SGOT/AST (test code 39 U/L 15-46 N = AST) SGPT/ALT (test code 18 U/L 0-34 N = ALT) ALKALINE PHOSPHATASE 74 U/L 38-126 N (test code = ALKP) COMPREHENSIVE METABOLIC [id number] 07:02:00 Test Item Value Reference Range Interpretation Comments SODIUM (test code = 139 mmol/L 137-145 N NA) POTASSIUM (test code 3.7 mmol/L 3.4-5.0 N = K) CHLORIDE (test code 103 mmol/L 98-107 N = CL) CARBON DIOXIDE (test 26 mmol/L 22-30 N code = CO2) GLUCOSE (test code = 120 mg/dL 74-106 H GLU) BLOOD UREA NITROGEN 24 mg/dL 9-20 H (test code = BUN) GLOMERULAR 100 >60 The estimated FILTRATION RATE glomerular f iltration (test code = GFR) rate is co mputed usingpatient ra ce, age (>18), sex, and serum creatinine. If anyof the needed data elements are mi ssing the Laboratory cannot compute an eve mation of the glomerul ar filtration rate . CREATININE (test 0.8 mg/dL 0.7-1.3 N code = CREAT) TOTAL PROTEIN (test 7.6 g/dL 6.3-8.2 N code = PROT) ALBUMIN (test code = 4.1 g/dL 3.5-5.0 N ALB) CALCIUM (test code = 9.2 mg/dL 8.4-10.2 N CA) BILIRUBIN TOTAL 0.5 mg/dL 0.2-1.3 N "A positive bias may (test code = BILT) occur for patients taking Eltrombo pag(a bone marrow sti mulant used to treat thrombocytopeni a andaplastic ane ryan)." BILIRUBIN CONJUGATED 0 mg/dL 0-0.3 N "A posi tive bias may (test code = BILCON) occur f or patients taking Eltrombo pag(a bone marrow sti mulant used to treat thrombocytopeni a andaplastic ane ryan)." C ONJUGATE D BILIRUBIN IS THE REPLACEMENT ASS AY FOR DIRECTBILIRUBIN . BILIRUBIN 0.2 mg/dL 0-1.1 N UNCONJUGATED (test code = BILUNC) SGOT/AST (test code 39 U/L 15-46 N = AST) SGPT/ALT (test code U/L 0-34 = ALT) ALKALINE PHOSPHATASE 74 U/L 38-126 N (test code = ALKP) CBC W/AUTO [id number] 06:50:00 Test Item Value Reference Range Interpretation Comments WHITE BLOOD CELL (test code = 10.4 x10 3/uL 5.0-12.0 N WBC) RED BLOOD CELL (test code = 5.00 x10 6/uL 4.70-6.10 N RBC) HEMOGLOBIN (test code = HGB) 14.4 g/dL 14.0-18.0 N HEMATOCRIT (test code = HCT) 45.6 % 37.0-49.0 N MEAN CELL VOLUME (test code = 91 fL 80-94 N MCV) MEAN CELL HGB (test code = MCH) 28.8 pg 27-31 N MEAN CELL HGB CONCENTRATION 31.6 g/dL 33-37 L (test code = MCHC) RED CELL DISTRIBUTION WIDTH 12.9 % 11.5-15.5 N (test code = RDW) PLATELET COUNT (test code = 240 x10 3/uL 130-400 N PLT) MEAN PLATELET VOLUME (test code 9.2 fL 9.4-16.4 L = MPV) NEUTROPHIL % (test code = NT%) 68.2 % 43-65 H IMMATURE GRANULOCYTE % (test 0.4 % 0.0-2.0 N code = IG%) LYMPHOCYTE % (test code = LY%) 19.7 % 20.5-45.5 L MONOCYTE % (test code = MO%) 9.5 % 5.5-11.7 N EOSINOPHIL % (test code = EO%) 1.8 % 0.9-2.9 N BASOPHIL % (test code = BA%) 0.4 % 0.2-1.0 N NUCLEATED RBC % (test code = 0.0 % 0-1.0 N NRBC%) NEUTROPHIL # (test code = NT#) 7.09 x10 3/uL 2.2-4.8 H IMMATURE GRANULOCYTE # (test 0.04 x10 3/uL 0-0.03 H code = IG#) LYMPHOCYTE # (test code = LY#) 2.05 x10 3/uL 1.3-2.9 N MONOCYTE # (test code = MO#) 0.99 x10 3/uL 0.3-0.8 H EOSINOPHIL # (test code = EO#) 0.19 x10 3/uL 0.0-0.2 N BASOPHIL # (test code = BA#) 0.04 x10 3/uL 0.0-0.1 N COVID 19 Asymptomatic IH [id number] 23:50:00 Test Item Value Reference Range Interpretation Comments COVID 19 Asymptomatic IH AG (test NEGATIVE Negative code = COVNONPUIAG) DRUGS OF ABUSE [id number] 01:35:00 Test Item Value Reference Range Interpretation Comments TRICYCLICS QL SQN (test NEGATIVE NEG TEST PERFORMED code = TRIUR) MANUALLY USING [employer] RAPIDTEST TCA.C UTOFF >/= 1000 NG/ML A Positive drug s creen result provides only a "PreliminaryPos itive" test result.If a confirmation of positive result is necessary, a morespecific confirmatory te st must be ordered by the physician. Drug screens are per formed for medical (i. e. treatment)purpo ses only. Unconfirm ed screening resul ts must not beused for non-medical pur poses (e.g employment testing). UR COCAINE (test code = NEGATIVE NEGATIVE CUTO FF >/= 300 NG/ML COCAU) UR THC CANABINOIDS QL NEGATIVE NEGATIVE CUTOFF >/= 20 NG/ML SQN (test code = CANU) UR AMPHETAMINE QL SQN NEGATIVE NEGATIVE CUTOFF >/= 500 NG/ML (test code = AMPHU) UR BARBITURATE QUAL NEGATIVE NEGATIVE CUTOFF >/= 200 NG/ML (test code = BARBQLU) UR BENZODIAZEPINE (test NEGATIVE NEGATIVE CUTO FF >/= 200 NG/ML code = BENZU) UR OPIATES QUAL (test POSITIVE NEGATIVE A CUTOFF >/= 300 NG/ML code = OPIAQLU) UR PHENCYCLIDINE (PCP) NEGATIVE NEGATIVE CUTOF F >/= 25 NG/ML (test code = PHENCU) DRUGS OF ABUSE [id number] 01:18:00 Test Item Value Reference Range Interpretation Comments TRICYCLICS QL SQN (test NEGATIVE NEG TEST PERFORMED code = TRIUR) MANUALLY USING [employer] RAPIDTEST TCA.C UTOFF >/= 1000 NG/ML A Positive drug s creen result provides only a "PreliminaryPos itive" test result.If a confirmation of positive result is necessary, a morespecific confirmatory te st must be ordered by the physician. Drug screens are per formed for medical (i. e. treatment)purpo ses only. Unconfirm ed screening resul ts must not beused for non-medical pur poses (e.g employment testing). UR COCAINE (test code = NEGATIVE COCAU) UR THC CANABINOIDS QL NEGATIVE SQN (test code = CANU) UR AMPHETAMINE QL SQN NEGATIVE (test code = AMPHU) UR BARBITURATE QUAL NEGATIVE (test code = BARBQLU) UR BENZODIAZEPINE (test NEGATIVE code = BENZU) UR OPIATES QUAL (test NEGATIVE code = OPIAQLU) UR PHENCYCLIDINE (PCP) NEGATIVE (test code = PHENCU) UA RFLX MICR CULT IF [id number] 01:15:00 Test Item Value Reference Range Interpretation Comments UA COLOR (test code = Yellow Yellow COLU) UA APPEARANCE (test Clear Clear code = APPU) UA GLUCOSE DIPSTICK 50 (1+) Negative A (test code = DGLUU) UA BILIRUBIN DIPSTICK Negative Negative (test code = BILU) UA KETONE DIPSTICK Negative mg/dL Negative (test code = KETU) UA SPECIFIC GRAVITY 1.011 <1.030 (test code = SGU) UA BLOOD DIPSTICK Negative Negative (test code = TERE) UA PH DIPSTICK (test 7.0 5.0-8.0 code = JESU) UA PROTEIN DIPSTICK NEGATIVE mg/dL Negative (test code = PROU) UA UROBILINOGEN Negative mg/dL Negative DIPSTICK (test code = URO) UA NITRITE DIPSTICK Negative Negative (test code = MANDA) UA LEUKOCYTE ESTERASE NEGATIVE Negative DIPSTICK (test code = LEUU) UA WBC (test code = 0-3 /HPF <4-5 <10 WBC/ HPF = WBCUR) PYURIA ABSENT URINE CULTURE NOT INDICATED UA RBC (test code = 3-5 /HPF <4-5 RBCU) UA BACTERIA (test Rare /HPF None-Rare code = BACU) UA SQUAMOUS CELLS 0-5 (RARE) /HPF 0-5 (RARE) (test code = SQU) SOURCE OF URINE: CLEAN CATCHIndication for culture: Flank PainBASIC METABOLIC [id number] 06:08:00 Test Item Value Reference Range Interpretation Comments SODIUM (test code = 137 mmol/L 137-145 N NA) POTASSIUM (test code 3.6 mmol/L 3.4-5.0 N = K) CHLORIDE (test code = 100 mmol/L 98-107 N CL) CARBON DIOXIDE (test 26 mmol/L 22-30 N code = CO2) GLUCOSE (test code = 138 mg/dL 74-106 H GLU) BLOOD UREA NITROGEN 8 mg/dL 9-20 L (test code = BUN) GLOMERULAR FILTRATION 140 >60 The es timated RATE (test code = glomerular filtration GFR) rate is compute d usingpatient ra ce, age (>18), sex, and serum creatinine. If anyof the needed data elements are mi ssing the Laboratory cannot compute an eve mation of the glomerul ar filtration rate . CREATININE (test code 0.6 mg/dL 0.7-1.3 L = CREAT) CALCIUM (test code = 8.9 mg/dL 8.4-10.2 N CA) CBC W/AUTO [id number] 05:36:00 Test Item Value Reference Range Interpretation Comments WHITE BLOOD CELL (test code = 8.9 x10 3/uL 5.0-12.0 N WBC) RED BLOOD CELL (test code = 5.31 x10 6/uL 4.70-6.10 N RBC) HEMOGLOBIN (test code = HGB) 15.3 g/dL 14.0-18.0 HEMATOCRIT (test code = HCT) 48.6 % 37.0-49.0 MEAN CELL VOLUME (test code = 92 fL 80-94 N MCV) MEAN CELL HGB (test code = MCH) 28.8 pg 27-31 N MEAN CELL HGB CONCENTRATION 31.5 g/dL 33-37 L (test code = MCHC) RED CELL DISTRIBUTION WIDTH 12.9 % 11.5-15.5 N (test code = RDW) PLATELET COUNT (test code = 218 x10 3/uL 130-400 N PLT) MEAN PLATELET VOLUME (test code 9.9 fL 9.4-16.4 N = MPV) NEUTROPHIL % (test code = NT%) 75.8 % 43-65 H IMMATURE GRANULOCYTE % (test 0.5 % 0.0-2.0 N code = IG%) LYMPHOCYTE % (test code = LY%) 14.8 % 20.5-45.5 L MONOCYTE % (test code = MO%) 6.5 % 5.5-11.7 N EOSINOPHIL % (test code = EO%) 2.1 % 0.9-2.9 N BASOPHIL % (test code = BA%) 0.3 % 0.2-1.0 N NUCLEATED RBC % (test code = 0.0 % 0-1.0 N NRBC%) NEUTROPHIL # (test code = NT#) 6.71 x10 3/uL 2.2-4.8 H IMMATURE GRANULOCYTE # (test 0.04 x10 3/uL 0-0.03 H code = IG#) LYMPHOCYTE # (test code = LY#) 1.31 x10 3/uL 1.3-2.9 N MONOCYTE # (test code = MO#) 0.58 x10 3/uL 0.3-0.8 N EOSINOPHIL # (test code = EO#) 0.19 x10 3/uL 0.0-0.2 N BASOPHIL # (test code = BA#) 0.03 x10 3/uL 0.0-0.1 N [id number] 21:30:00 Test Item Value Reference Range Interpretation Comments GLUBED (test code = GLUBED) 97 MG/DL 74-106 N T4 [id number] 11:03:00 Test Item Value Reference Range Interpretation Comments T4 FREE (test code = T4F) 0.99 ng/dL 0.78-2.19 N VITAMIN [id number] 10:07:00 Test Item Value Reference Range Interpretation Comments VITAMIN B12 (test code = VITB12) 318 pg/mL 239-931 N TSH REFLEX TO [id number] 10:07:00 Test Item Value Reference Range Interpretation Comments TSH REFLEX TO FT4 4.860 MIU/L 0.465-4.68 H (test code = TSHREFLEX) *A positive bias m ay occur for patie nts taking BIOTINsupplemen ts. VITAMIN [id number] 09:54:00 Test Item Value Reference Range Interpretation Comments VITAMIN B12 (test code = VITB12) pg/mL 239-931 TSH REFLEX TO [id number] 09:54:00 Test Item Value Reference Range Interpretation Comments TSH REFLEX TO FT4 4.860 MIU/L 0.465-4.68 H (test code = TSHREFLEX) *A positive bias m ay occur for patie nts taking BIOTINsupplemen ts. LIPID PROFILE (CORONARY RISK)2019-11-11 05:41:00 Test Item Value Reference Range Interpretation Comments TRIGLYCERIDES (test 92 mg/dL TRIGLYCE RIDES code = TRIG) REFERENCE RANGE:Normal: < 150 mg/dLBorderline High: 150-199 mg/dLHi gh: 200-499 mg/dLVe ry High: >=500 mg/ dL CHOLESTEROL (test 152 mg/dL CHOLESTERO L REFERENCE code = CHOL) RANGE:DESIRABLE : < 200 mg/dLBORDER LINE: 200-239 mg/dLHI GH: >=240 mg/dL HDL CHOLESTEROL (test 41 mg/dL 40-59 N code = HDL) LIPOPROTEIN LDL (test 88.31 mg/dL 32-99 N code = LDLC) CORONARY RISK FACTOR 3.71 (test code = RISK) CHOL/HDL RISK MALE: 1/2 AVG 3.43 FEMALE: 1/2 AV G 3.27 AVG 4.97 AVG 4.44 2X AVG 9.55 2X AVG 7.05 3X AVG 23. 39 3X AVG 11.04~~~~~~~~~~ ~~~~~~ ~~~~~~~~~~~~~~~ ~~~~~~ ~~~~~~~~~~~~~~~ ~~~~~~ ~~National Cholesterol Edu cation (NCEP) Guidelines:~~~~ ~~~~~~ ~~~~~~~~~~~~~~~ ~~~~~~ ~~~~~~~~~~~~~~~ ~~~~~~ ~~~~~~~~ HDL Cholesterol<4 0mg/dL : HDL Cholester ol (Major risk fac tor for CHD)>60mg/d L: HDL Cholesterol (Ne gative risk factor for CHD)40-59mg/dL: Borderline Risk LDL Cholesterol<1 00mg/d L: Desirable LD L-C [id number] 0-159m g/dL: Borderlin e High Risk LDL-C [id number] 0-189m g/dL: High risk LDL-C concentration H DL-LDL Cholesterol is affected by a n umber of factors such as smoking, age an d sex.~~~~~~~~~~~ ~~~~~~ ~~~~~~~~~~~~~~~ ~~~~~~ ~~~~~~~~~~~~~~~ ~~~~~~ ~ LIPID PROFILE (CORONARY RISK)2019-11-11 05:30:00 Test Item Value Reference Range Interpretation Comments TRIGLYCERIDES (test 92 mg/dL TRIGLYCE RIDES code = TRIG) REFERENCE RANGE:Normal: < 150 mg/dLBorderline High: 150-199 mg/dLHi gh: 200-499 mg/dLVe ry High: >=500 mg/ dL CHOLESTEROL (test code 152 mg/dL SMITH STEROL REFERENCE = CHOL) RANGE:DESIRABLE : < 200 mg/dLBORDERLINE : 200-239 mg/dLHI GH: >=240 mg/dL HDL CHOLESTEROL (test 41 mg/dL 40-59 N code = HDL) LIPOPROTEIN LDL (test mg/dL 32-99 code = LDLC) CORONARY RISK FACTOR 3.71 (test code = RISK) CHOL/HDL RISK MALE: 1/2 AVG 3.43 FEMALE: 1/2 AV G 3.27 AVG 4.97 AVG 4.44 2X AVG 9.55 2X AVG 7.05 3X AVG 23.39 3X AVG 11.04~~~~~~~~~~ ~~~~~~~ ~~~~~~~~~~~~~~~ ~~~~~~~ ~~~~~~~~~~~~~~~ ~~~~~~N ational Cholest angela Education (NCEP ) Guidelines:~~~~ ~~~~~~~ ~~~~~~~~~~~~~~~ ~~~~~~~ ~~~~~~~~~~~~~~~ ~~~~~~~ ~~~~~ HDL Cholesterol<4 0mg/dL: HDL Cholesterol (Major risk factor for CHD)>60mg/dL: H DL Cholesterol (Ne gative risk factor for CHD)40-59mg/dL: Borderline Risk L DL Cholesterol<1 00mg/dL : Desirable LDL -C [id number] 0-159mg /dL: Borderline High Risk LDL-C wivxymipsmurt21 0-189mg /dL: High risk LDL-C concentration H DL-LDL Cholesterol is affected by a n umber of factors such as smoking, age an d sex.~~~~~~~~~~~ ~~~~~~~ ~~~~~~~~~~~~~~~ ~~~~~~~ ~~~~~~~~~~~~~~~ ~~~~~ - CT C-SPINE W/O [id number] 00:35:00 FAX: Sebastien Dobson MD R1 [place]: St: REG Name: OSIRIS INFANTE : 1945 Age/S: 74/M [address] Unit: [id number] Loc: [place] [address] Phys: Sebastien Dobson MD R1 Acct: [id number] Dis Date: Status: REG E R PHONE #: [phone] Exam Date: 11/11/2019 0004 FAX #: [phone] Reason: FALL EXAMS: CPT CODE: [id number] CT C-SPINE W/O CONT 08061 EXAM: - CT C-SPINE W/O CONT LOCATION: H61 CLINICAL HISTORY/INDICATION: FALL COMPARISON: None TECHNIQUE: Axial CT images were obtained of the cervical spine withoutintravenous contrast administration.These were reviewed in both soft tissue and bone algorithms. Coronal and sagittal reformats were obtained from the axial data. This examination was performed according to our departmental dose optimization program, which includes automated exposure control, adjustment of the mAand/or kV according to patient size, and/or use of iterative reconstruction technique. FINDINGS: LIMITATIONS: Ligamentous, spinal cord, and/or vascular abnormalities cannot be excluded on the basis of this examination. ALIGNMENT: Straightening of the normal cervical lordosis. No acute subluxation. CRANIOCERVICAL JUNCTION: Intact. VERTEBRAL BODIES: Normal in height and morphology. FRACTURES: No acute fractures. REGIONAL SOFT TISSUES: Prevertebral and posterior paraspinal soft tissues are unremarkable. Mild atherosclerotic calcification of the bilateral carotid bifurcations UPPER CHEST:Mild centrilobular pulmonary emphysema and fibrotic changes. DEGENERATIVE CHANGES:Severe multilevel disc degeneration and facet arthropathy. Moderate anterior atlantoaxial osteoarthritis. Diffuse posterior disc osteophyte complex and uncovertebral arthrosis at C6-C7 results in mild spinal canal stenosis and moderate bilateral foraminal stenosis. PAGE 1 Signed Report (CONTINUED) FAX: Sebastien Dobson MD R1 [place]: St: REG Name: [place]IS INFANTEwood : 1945 Age/S: 74/M [address] Unit: [id number] Loc: [place] [address] Phys: Jason Dobson R1 Acct: [id number] Dis Date: Status: REG ER PHONE #: [phone] Exam Date: 11/11/2019 0004 FAX #: [phone] Reason: FALL EXAMS: CPT CODE: [id number] CT C-SPINE W/O CONT 48853 <Continued> OTHER FINDINGS: Surgical changes of left mastoidectomy. IMPRESSION: 1. No acute fracture or subluxation. 2. Moderate multilevel spondylosis. at 0035 Reported and signed by: Tristian Crain MD CC: Sebastien Dobson MD Technologist: eRbeca Sims; LESLYE SINGH Trnscrd Dt/Tm: 11/11/2019 (0035) [email or web address] Orig Print D/T: S: 11/11/2019 (0038 PAGE 2 Signed Report- CT HEAD/BRAIN W/O [id number] 00:31:00 FAX: Sebastien Dobson MD R1 [place]: St: REG Name: [place]IS INFANTEwood : 1945 Age/S: 74/M [address] Unit: [id number] Loc: [place] [address] Phys: Sebastien Dobson MD R1 Acct: [id number] Dis Date: Status: REG E R PHONE #: [phone] Exam Date: 11/11/2019 0006 FAX #: [phone] Reason: FALL EXAMS: CPT CODE: [id number] CT HEAD/BRAIN W/O CONT [id number] EXAM: - CT HEAD/BRAIN W/O CONT LOCATION: H61 CLINICAL HISTORY/INDICATION: FALL TECHNIQUE: Helical CT acquisition of thehead was obtained without IV contrast. Images were reconstructed in the axial, sagittal and coronal planes. This examination was performed according to our departmental dose optimization program, which includes automated exposure control, adjustment of the mA and/or kV according to patient size, and/or use of iterative reconstruction technique. COMPARISON:Head CT 12/23/2012. FINDINGS: SULCI AND VENTRICLES: Moderate generalized sulcal widening with moderate compensatory dilatations of the lateral ventricle is compatible with moderate generalized cerebral volume loss. PARENCHYMA: No CT evidence of acute large territorial infarct, parenchymal hemorrhage or mass effect. Beginning to confluent hypodensities in the periventricular and deep cerebral white matter are nonspecific, but are likely moderate chronic small vessel ischemic disease. Encephalomalacia within the bilateralinferior frontal lobes. Benign basal ganglia calcification. EXTRA AXIAL SPACE: No epidural or subdural hematoma. No mass. SCALP: No abnormalities. BONES: No skull fractures or aggressive calvarial lesions. PARTIALLY IMAGED FACE /PARANASAL SINUSES: Post surgical changes of maxillary antrostomy in the right maxillary sinus and ethmoidectomies in the right ethmoid sinus. Mild mucosal thickening in the right maxillary sinus. Mucosal thickening within the anterior left ethmoid sinus. MASTOID AIR CELLS: Surgical change of left-sided mastoidectomy. The right mastoid air cells are clear. IMPRESSION: PAGE 1 Signed Report (CONTINUED) FAX: Sebastien Dobson MD R1 [place]: St: REG Name: OSIRIS INFANTE : 1945 Age/S: 74/M [address] Unit: [id number] Loc: [place] [address] Phys: Sebastien Dobson MD R1 Acct: [id number] Dis Date: Status: REG ER PHONE #: [phone] Exam Date: 11/11/2019 0006 FAX #: [phone] Reason: FALL EXAMS: CPT CODE: [id number] CT HEAD/BRAIN W/O CONT 53773 <Continued> 1. No CT evidence of acute intracranial process. 2. 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 3. Moderate cerebral atrophy. 4. Moderate chronic small vessel ischemic disease. at 0031 Reported and signed by: Trisitan Crain MD CC: Sebastien Dobson MD Technologist: Rebeca Sims; LESLYE SINGH Trnscrd Dt/Tm: 11/11/2019 (0031) [email or web address] Orig Print D/T: S: 11/11/2019 (0034 PAGE 2 Signed ReportCOMPREHENSIVE METABOLIC [id number] 00:08:00 Test Item Value Reference Range Interpretation Comments SODIUM (test code = 136 mmol/L 137-145 L NA) POTASSIUM (test code 4.0 mmol/L 3.4-5.0 N = K) CHLORIDE (test code 97 mmol/L 98-107 L = CL) CARBON DIOXIDE (test 31 mmol/L 22-30 H code = CO2) GLUCOSE (test code = 121 mg/dL 74-106 H GLU) BLOOD UREA NITROGEN 10 mg/dL 9-20 N (test code = BUN) GLOMERULAR 117 >60 The estimated FILTRATION RATE glomerular f iltration (test code = GFR) rate is co mputed usingpatient ra ce, age (>18), sex, and serum creatinine. If anyof the needed data elements are mi ssing the Laboratory cannot compute an eve mation of the glomerul ar filtration rate . CREATININE (test 0.7 mg/dL 0.7-1.3 N code = CREAT) TOTAL PROTEIN (test 7.0 g/dL 6.3-8.2 N code = PROT) ALBUMIN (test code = 3.9 g/dL 3.5-5.0 N ALB) CALCIUM (test code = 8.6 mg/dL 8.4-10.2 N CA) BILIRUBIN TOTAL 0.6 mg/dL 0.2-1.3 N "A positive bias may (test code = BILT) occur for patients taking Eltrombo pag(a bone marrow sti mulant used to treat thrombocytopeni a andaplastic ane ryan)." BILIRUBIN CONJUGATED 0 mg/dL 0-0.3 N "A posi tive bias may (test code = BILCON) occur f or patients taking Eltrombo pag(a bone marrow sti mulant used to treat thrombocytopeni a andaplastic ane ryan)." C ONJUGATE D BILIRUBIN IS THE REPLACEMENT ASS AY FOR DIRECTBILIRUBIN . BILIRUBIN 0.2 mg/dL 0-1.1 N UNCONJUGATED (test code = BILUNC) SGOT/AST (test code 38 U/L 15-46 N = AST) SGPT/ALT (test code U/L 0-34 = ALT) ALKALINE PHOSPHATASE 60 U/L 38-126 N (test code = ALKP) COMPREHENSIVE METABOLIC [id number] 00:08:00 Test Item Value Reference Range Interpretation Comments SODIUM (test code = 136 mmol/L 137-145 L NA) POTASSIUM (test code 4.0 mmol/L 3.4-5.0 N = K) CHLORIDE (test code 97 mmol/L 98-107 L = CL) CARBON DIOXIDE (test 31 mmol/L 22-30 H code = CO2) GLUCOSE (test code = 121 mg/dL 74-106 H GLU) BLOOD UREA NITROGEN 10 mg/dL 9-20 N (test code = BUN) GLOMERULAR 117 >60 The estimated FILTRATION RATE glomerular f iltration (test code = GFR) rate is co mputed usingpatient ra ce, age (>18), sex, and serum creatinine. If anyof the needed data elements are mi ssing the Laboratory cannot compute an eve mation of the glomerul ar filtration rate . CREATININE (test 0.7 mg/dL 0.7-1.3 N code = CREAT) TOTAL PROTEIN (test 7.0 g/dL 6.3-8.2 N code = PROT) ALBUMIN (test code = 3.9 g/dL 3.5-5.0 N ALB) CALCIUM (test code = 8.6 mg/dL 8.4-10.2 N CA) BILIRUBIN TOTAL 0.6 mg/dL 0.2-1.3 N "A positive bias may (test code = BILT) occur for patients taking Eltrombo pag(a bone marrow sti mulant used to treat thrombocytopeni a andaplastic ane ryan)." BILIRUBIN CONJUGATED 0 mg/dL 0-0.3 N "A posi tive bias may (test code = BILCON) occur f or patients taking Eltrombo pag(a bone marrow sti mulant used to treat thrombocytopeni a andaplastic ane ryan)." C ONJUGATE D BILIRUBIN IS THE REPLACEMENT ASS AY FOR DIRECTBILIRUBIN . BILIRUBIN 0.2 mg/dL 0-1.1 N UNCONJUGATED (test code = BILUNC) SGOT/AST (test code 38 U/L 15-46 N = AST) SGPT/ALT (test code 12 U/L 0-34 N = ALT) ALKALINE PHOSPHATASE 60 U/L 38-126 N (test code = ALKP) CBC W/AUTO [id number] 23:51:00 Test Item Value Reference Range Interpretation Comments WHITE BLOOD CELL (test code = 9.9 x10 3/uL 5.0-12.0 N WBC) RED BLOOD CELL (test code = 4.14 x10 6/uL 4.70-6.10 L RBC) HEMOGLOBIN (test code = HGB) 12.2 g/dL 14.0-18.0 L HEMATOCRIT (test code = HCT) 37.4 % 37.0-49.0 N MEAN CELL VOLUME (test code = 90 fL 80-94 N MCV) MEAN CELL HGB (test code = MCH) 29.5 pg 27-31 N MEAN CELL HGB CONCENTRATION 32.6 g/dL 33-37 L (test code = MCHC) RED CELL DISTRIBUTION WIDTH 12.6 % 11.5-15.5 N (test code = RDW) PLATELET COUNT (test code = 192 x10 3/uL 130-400 N PLT) MEAN PLATELET VOLUME (test code 9.8 fL 9.4-16.4 N = MPV) NEUTROPHIL % (test code = NT%) 69.7 % 43-65 H IMMATURE GRANULOCYTE % (test 0.3 % 0.0-2.0 N code = IG%) LYMPHOCYTE % (test code = LY%) 19.3 % 20.5-45.5 L MONOCYTE % (test code = MO%) 8.2 % 5.5-11.7 N EOSINOPHIL % (test code = EO%) 2.1 % 0.9-2.9 N BASOPHIL % (test code = BA%) 0.4 % 0.2-1.0 N NUCLEATED RBC % (test code = 0.0 % 0-1.0 N NRBC%) NEUTROPHIL # (test code = NT#) 6.89 x10 3/uL 2.2-4.8 H IMMATURE GRANULOCYTE # (test 0.03 x10 3/uL 0-0.03 N code = IG#) LYMPHOCYTE # (test code = LY#) 1.91 x10 3/uL 1.3-2.9 N MONOCYTE # (test code = MO#) 0.81 x10 3/uL 0.3-0.8 H EOSINOPHIL # (test code = EO#) 0.21 x10 3/uL 0.0-0.2 H BASOPHIL # (test code = BA#) 0.04 x10 3/uL 0.0-0.1 N POCT-GLUCOSE [id number] 14:10:00 Test Item Value Reference Range Interpretation Comments POC-GLUCOSE METER 95 mg/dL 70-110 TESTED AT [facility] [address] (BEAKER) (test code = [facility] [address]) [place] [address] BLOOD [id number] 01:00:00 Test Item Value Reference Range Interpretation Comments CULTURE (BEAKER) (test No growth in 5 days code = 1095) BLOOD [id number] 01:00:00 Test Item Value Reference Range Interpretation Comments CULTURE (BEAKER) (test No growth in 5 days code = 1095) BASIC METABOLIC [id number] 07:12:00 Test Item Value Reference Range Interpretation Comments SODIUM (BEAKER) 141 meq/L 135-148 (test code = 381) POTASSIUM (BEAKER) 3.9 meq/L 3.5-5.5 (test code = 379) CHLORIDE (BEAKER) 104 meq/L 98-106 (test code = 382) CO2 (BEAKER) (test 27 meq/L 20-31 code = 355) BLOOD UREA NITROGEN 10 mg/dL 10-26 (BEAKER) (test code = 354) CREATININE (BEAKER) 0.77 mg/dL 0.50-1.20 (test code = 358) GLUCOSE RANDOM 77 mg/dL 70-110 (BEAKER) (test code = 652) CALCIUM (BEAKER) 8.7 mg/dL 8.5-10.5 (test code = 697) EGFR (BEAKER) (test 99 mL/min/1.73 ESTIMA SAMANTHA GFR IS code = 1092) sq m NOT ACCURATE CREATININE CLEARANCE IN PREDICTING GLOMERULAR FILTRATION RATE . ESTIMATED GFR I S NOT APPLICABLE FOR DIALYSIS PATIEN TS. BASIC METABOLIC [id number] 07:07:00 Test Item Value Reference Range Interpretation Comments SODIUM (BEAKER) 144 meq/L 135-148 (test code = 381) POTASSIUM (BEAKER) 3.1 meq/L 3.5-5.5 L (test code = 379) CHLORIDE (BEAKER) 107 meq/L 98-106 H (test code = 382) CO2 (BEAKER) (test 27 meq/L 20-31 code = 355) BLOOD UREA NITROGEN 10 mg/dL 10-26 (BEAKER) (test code = 354) CREATININE (BEAKER) 0.72 mg/dL 0.50-1.20 (test code = 358) GLUCOSE RANDOM 94 mg/dL 70-110 (BEAKER) (test code = 652) CALCIUM (BEAKER) 8.5 mg/dL 8.5-10.5 (test code = 697) EGFR (BEAKER) (test 107 mL/min/1.73 ESTIM ATED GFR IS code = 1092) sq m NOT ACCURATE CREATININE CLEARANCE IN PREDICTING GLOMERULAR FILTRATION RATE . ESTIMATED GFR I S NOT APPLICABLE FOR DIALYSIS PATIEN TS. CBC W/PLT COUNT & AUTO [id number] 06:32:00 Test Item Value Reference Range Interpretation Comments WHITE BLOOD CELL COUNT 7.0 K/ L 4.0-10.0 (BEAKER) (test code = 775) RED BLOOD CELL COUNT 4.37 M/ L 4.20-5.80 (BEAKER) (test code = 761) HEMOGLOBIN (BEAKER) 13.0 GM/DL 13.0-16.8 (test code = 410) HEMATOCRIT (BEAKER) 39.1 % 36.0-50.0 (test code = 411) MEAN CORPUSCULAR VOLUME 89.5 fL 82.0-99.0 (BEAKER) (test code = 753) MEAN CORPUSCULAR 29.7 pg 27.0-33.0 HEMOGLOBIN (BEAKER) (test code = 751) MEAN CORPUSCULAR 33.2 GM/DL 32.0-36.0 HEMOGLOBIN CONC (BEAKER) (test code = 752) RED CELL DISTRIBUTION 12.2 % 12.0-15.0 WIDTH (BEAKER) (test code = 412) PLATELET COUNT (BEAKER) 150 K/CU MM 150-430 (test code = 756) MEAN PLATELET VOLUME 9.3 fL 6.0-11.5 MPV-Jass roximately (BEAKER) (test code = 20% po sitive bias 754) due to method change. NUCLEATED RED BLOOD 0 /100 WBC 0-0 CELLS (BEAKER) (test code = 413) NEUTROPHILS RELATIVE 48 % PERCENT (BEAKER) (test code = 429) LYMPHOCYTES RELATIVE 38 % PERCENT (BEAKER) (test code = 430) MONOCYTES RELATIVE 12 % PERCENT (BEAKER) (test code = 431) EOSINOPHILS RELATIVE 1 % PERCENT (BEAKER) (test code = 432) BASOPHILS RELATIVE 1 % PERCENT (BEAKER) (test code = 437) NEUTROPHILS ABSOLUTE 3.30 K/ L 1.80-8.00 COUNT (BEAKER) (test code = 670) LYMPHOCYTES ABSOLUTE 2.63 K/ L 1.48-4.50 COUNT (BEAKER) (test code = 414) MONOCYTES ABSOLUTE 0.86 K/ L 0.00-1.30 COUNT (BEAKER) (test code = 415) EOSINOPHILS ABSOLUTE 0.10 K/ L 0.00-0.50 COUNT (BEAKER) (test code = 416) BASOPHILS ABSOLUTE 0.04 K/ L 0.00-0.20 COUNT (BEAKER) (test code = 417) IMMATURE 0 % 0-0 GRANULOCYTES-RELATIVE PERCENT (BEAKER) (test code = 2801) RESPIRATORY PANEL [id number] 19:59:00 Test Item Value Reference Range Interpretation Comments HUMAN METAPNEUMOVIRUS Not detected Not detected, (BEAKER) (test code = 2683) Equivocal RHINOVIRUS (BEAKER) (test Not detected Not detected, code = 2684) Equivocal INFLUENZA A (BEAKER) (test Not detected Not detected, code = 2685) Equivocal INFLUENZA A (NO SUBTYPE) (test code = 3606) INFLUENZA A SUBTYPE H1 (BEAKER) (test code = 2686) INFLUENZA A SUBTYPE H3 (BEAKER) (test code = 2687) INFLUENZA A SUBTYPE H1-2009 (BEAKER) (test code = 3198) INFLUENZA B (BEAKER) (test Not detected Not detected, code = 2688) Equivocal RESPIRATORY SYNCYTIAL VIRUS Not detected Not detected, (BEAKER) (test code = 3199) Equivocal PARAINFLUENZA VIRUS 1 Not detected Not detected, (BEAKER) (test code = 2691) Equivocal PARAINFLUENZA VIRUS 2 Not detected Not detected, (BEAKER) (test code = 2692) Equivocal PARAINFLUENZA VIRUS 3 Not detected Not detected, (BEAKER) (test code = 2693) Equivocal PARAINFLUENZA VIRUS 4 Not detected Not detected, (BEAKER) (test code = 3200) Equivocal ADENOVIRUS (BEAKER) (test Not detected Not detected, code = 2694) Equivocal CORONAVIRUS 229E (BEAKER) Not detected Not detected, (test code = 3201) Equivocal CORONAVIRUS HKU1 (BEAKER) Not detected Not detected, (test code = 3202) Equivocal CORONAVIRUS NL63 (BEAKER) Not detected Not detected, (test code = 3203) Equivocal CORONAVIRUS OC43 (BEAKER) Not detected Not detected, (test code = 3204) Equivocal BORDETELLA PERTUSSIS Not detected Not detected, (BEAKER) (test code = 3205) Equivocal CHLAMYDOPHILA PNEUMONIAE Not detected Not detected, (BEAKER) (test code = 3206) Equivocal MYCOPLASMA PNEUMONIAE Not detected Not detected, (BEAKER) (test code = 3207) Equivocal Other viruses and bacteria not targeted by this PCR panel cannot be excluded; therefore clinical correlation and follow up of serology, culture results, and other molecular studies is required. The results are not intended to be used as the sole means for clinical diagnosis or patient management decisions. This sample was tested at the [facility] using the FlickrArray Respiratory Panel. It is FDA cleared and has been verified and approved by the [facility] for clinical use on nasopharyngeal swab specimens.The performance of the FilmArrayRP has not been established in individuals who received influenza vaccine. Recent administration ofa nasal influenza vaccine may cause false positive results for Influenza A and/orInfluenza B.[id number] 15:30:00 Test Item Value Reference Range Interpretation Comments PROCALCITONIN (BEAKER) (test code = < ng/mL <0.05 3036) SEPSIS RISK (ng/mL)Low: 0.05-0.50Intermediate: 0.51-2.00High: >=2.01LEGIONELLA ANTIGEN, [id number] 09:39:00 Test Item Value Reference Range Interpretation Comments L. PNEUMOPHILA Negative - see Negative fo r L. SEROGP 1 UR AG comment pneumophila (BEAKER) (test code serogrou p 1 antigen, = 1156) suggesting no r ecent or current infe ction with this serog roup. Legionellosis c annot be ruled out si nce other serogroup s and species may cau se disease. STREP PNEUMONIAE [id number] 09:39:00 Test Item Value Reference Range Interpretation Comments STREP PNEUMONIAE Presumptive negative Presumptive negative ANTIGEN (BEAKER) for pneumococcal for pneumococcal (test code = 1615) pneumonia - see pneumonia - see comment commen Presumptive negative for pneumococcal pneumonia, suggesting no current or recent pneumococcal infection. Infection due to S. pneumoniae cannot be ruled out since the antigen present in the sample may be below the detection limit of the test. RAPID INFLUENZA A&B [id number] 21:18:00 Test Item Value Reference Range Interpretation Comments RAPID INFLUENZA A AG (BEAKER) (test Negative Negative code = 1622) RAPID INFLUENZA B AG (BEAKER) (test Negative Negative code = 1623) URINALYSIS W/ REFLEX URINE [id number] 21:14:00 Test Item Value Reference Range Interpretation Comments COLOR (BEAKER) (test code = 470) Yellow CLARITY (BEAKER) (test code = 469) Clear SPECIFIC GRAVITY UA (BEAKER) (test 1.012 1.001-1.035 code = 468) PH UA (BEAKER) (test code = 467) 7.0 5.0-8.0 PROTEIN UA (BEAKER) (test code = Negative Negative 464) GLUCOSE UA (BEAKER) (test code = Negative Negative 365) KETONES UA (BEAKER) (test code = Negative Negative 371) BILIRUBIN UA (BEAKER) (test code = Negative Negative 462) BLOOD UA (BEAKER) (test code = 461) Small Negative A NITRITE UA (BEAKER) (test code = Negative Negative 465) LEUKOCYTE ESTERASE UA (BEAKER) (test Negative Negative code = 466) UROBILINOGEN UA (BEAKER) (test code < mg/dL 0.2-1.0 = 463) RBC UA (BEAKER) (test code = 519) 10 /HPF WBC UA (BEAKER) (test code = 520) < /HPF MUCUS (BEAKER) (test code = 1574) Rare SOURCE(BEAKER) (test code = 7963) TROPONIN [id number] 21:04:00 Test Item Value Reference Range Interpretation Comments TROPONIN I (BEAKER) (test code = 397) < ng/mL 0.00-0.15 Troponin I (TnI) levels must be interpreted in the context of the presenting symptoms and the clinical findings. Elevated TnI levels indicate myocardial damage, but are not specific for ischemic heart disease. Elevated TnI levels are seen in patients with other cardiac conditions (including myocarditis and congestive heart failure), and slight TnI elevations occur in patients with other conditions, including sepsis, renal failure, acidosis, acute neurological disease, and persistent tachyarrhythmia.B-TYPE NATRIURETIC FACTOR (BNP) 2018-12-17 21:04:00 Test Item Value Reference Range Interpretation Comments B-TYPE NATRIURETIC PEPTIDE (BEAKER) 65 pg/mL 0-100 (test code = 700) COMPREHENSIVE METABOLIC [id number] 20:58:00 Test Item Value Reference Range Interpretation Comments TOTAL PROTEIN 7.0 gm/dL 6.0-8.5 (BEAKER) (test code = 770) ALBUMIN (BEAKER) 3.8 g/dL 3.5-5.0 (test code = 1145) ALKALINE PHOSPHATASE 65 U/L 30-115 (BEAKER) (test code = 346) BILIRUBIN TOTAL 0.3 mg/dL 0.1-1.3 (BEAKER) (test code = 377) SODIUM (BEAKER) (test 138 meq/L 135-148 code = 381) POTASSIUM (BEAKER) 3.9 meq/L 3.5-5.5 (test code = 379) CHLORIDE (BEAKER) 99 meq/L 98-106 (test code = 382) CO2 (BEAKER) (test 31 meq/L 20-31 code = 355) BLOOD UREA NITROGEN 8 mg/dL 10-26 L (BEAKER) (test code = 354) CREATININE (BEAKER) 0.82 mg/dL 0.50-1.20 (test code = 358) GLUCOSE RANDOM 103 mg/dL 70-110 (BEAKER) (test code = 652) CALCIUM (BEAKER) 8.4 mg/dL 8.5-10.5 L (test code = 697) AST (SGOT) (BEAKER) 23 U/L 5-40 (test code = 353) ALT (SGPT) (BEAKER) 16 U/L 6-50 (test code = 347) EGFR (BEAKER) (test 92 mL/min/1.73 ESTIMA SAMANTHA GFR IS code = 1092) sq m NOT ACCURATE CREATININE CLEARANCE IN PREDICTING GLOMERULAR FILTRATION RATE . ESTIMATED GFR I S NOT APPLICABLE FOR DIALYSIS PATIEN TS. LACTIC ACID, [id number] 20:51:00 Test Item Value Reference Range Interpretation Comments LACTATE BLOOD VENOUS 1.0 mmol/L 0.5-2.2 Specime n slightly (2) (BEAKER) (test hemolyzed code = 2872) [id number] 20:45:00 Test Item Value Reference Range Interpretation Comments PROTIME (BEAKER) (test code = 13.3 seconds 11.8-14.4 759) INR (BEAKER) (test code = 370) 1.0 1.2-1.5 L PARTIAL THROMBOPLASTIN TIME 37.8 seconds 23.2-36.1 H (BEAKER) (test code = 760) RECOMMENDED COUMADIN/WARFARIN INR THERAPY RANGESSTANDARD DOSE: 2.0 - 3.0 Includes: PROPHYLAXIS forvenous thrombosis, systemic embolization; TREATMENT for venous thrombosis and/or pulmonary embolus.HIGH RISK: Target INR is 2.5-3.5 for patients with mechanical heart valves.CBC W/PLT COUNT & AUTO DIFFERENTIAL 2018-12-17 20:35:00 Test Item Value Reference Range Interpretation Comments WHITE BLOOD CELL COUNT (BEAKER) 5.9 K/ L 4.0-10.0 (test code = 775) RED BLOOD CELL COUNT (BEAKER) 3.96 M/ L 4.20-5.80 L (test code = 761) HEMOGLOBIN (BEAKER) (test code = 12.0 GM/DL 13.0-16.8 L 410) HEMATOCRIT (BEAKER) (test code = 37.0 % 36.0-50.0 411) MEAN CORPUSCULAR VOLUME (BEAKER) 93.4 fL 82.0-99.0 (test code = 753) MEAN CORPUSCULAR HEMOGLOBIN 30.3 pg 27.0-33.0 (BEAKER) (test code = 751) MEAN CORPUSCULAR HEMOGLOBIN CONC 32.4 GM/DL 32.0-36.0 (BEAKER) (test code = 752) RED CELL DISTRIBUTION WIDTH 12.4 % 12.0-15.0 (BEAKER) (test code = 412) PLATELET COUNT (BEAKER) (test 148 K/CU MM 150-430 L code = 756) MEAN PLATELET VOLUME (BEAKER) 9.7 fL 6.0-11.5 (test code = 754) NUCLEATED RED BLOOD CELLS 0 /100 WBC 0-0 (BEAKER) (test code = 413) NEUTROPHILS RELATIVE PERCENT 70 % (BEAKER) (test code = 429) LYMPHOCYTES RELATIVE PERCENT 15 % (BEAKER) (test code = 430) MONOCYTES RELATIVE PERCENT 12 % (BEAKER) (test code = 431) EOSINOPHILS RELATIVE PERCENT 2 % (BEAKER) (test code = 432) BASOPHILS RELATIVE PERCENT 0 % (BEAKER) (test code = 437) NEUTROPHILS ABSOLUTE COUNT 4.15 K/ L 1.80-8.00 (BEAKER) (test code = 670) LYMPHOCYTES ABSOLUTE COUNT 0.87 K/ L 1.48-4.50 L (BEAKER) (test code = 414) MONOCYTES ABSOLUTE COUNT (BEAKER) 0.73 K/ L 0.00-1.30 (test code = 415) EOSINOPHILS ABSOLUTE COUNT 0.13 K/ L 0.00-0.50 (BEAKER) (test code = 416) BASOPHILS ABSOLUTE COUNT (BEAKER) 0.02 K/ L 0.00-0.20 (test code = 417) IMMATURE GRANULOCYTES-RELATIVE 0 % 0-0 PERCENT (BEAKER) (test code = 2801) CT, BRAIN, WITHOUT [id number] 20:15:00Reason for exam:->GENERALIZED WEAKNESS, NOT ASSOCIATED WITH EXTREMITIESFINAL REPORT CT, BRAIN, WITHOUT CONTRAST CLINICAL INDICATION: Altered mentalstatusGENERALIZED WEAKNESS, NOT ASSOCIATED WITH EXTREMITIES COMPARISON: February 09, 2015 TECHNIQUE: Noncontrast axial CT imaging of the brain and skull. Coronal and sagittal reformats obtained. DOSE REDUCTION: Dose modulation, iterative reconstruction, and/or weight-based adjustment of the mA/kV wasutilized to reduce the radiation dose to as low as reasonably achievable. FINDINGS:Cerebral parenchyma: Age related parenchymal volume loss and white matter hypoattenuation present. Confluent hypoattenuation within the inferior frontal lobes and periventricular white matter. Right temporal lobe encephalomalacia. No mass, acute intracranial hemorrhage or acute cortical infarct.Midline structures: Normally positioned.Cerebellum and brainstem: Normal.Ventricles: Ventricular size is commensurate with parenchymal volume loss.Extra-axial spaces: Unremarkable. Calvarium and skull base: Intact.Paranasal sinuses and mastoid air cells: Mild to moderate paranasal sinus mucosal thickening. Left mastoidectomy c hanges.Orbital contents: Included portions unremarkable. Additional findings: None. IMPRESSION: No acute intracranial abnormality. Involutional and chronic microangiopathic ischemic changes. Scatteredareas of encephalomalacia, possibly sequela of remote trauma or ischemia. Mild to moderate paranasalsinus disease. If there is persistent clinical concern for intracranial pathology, MR examination isrecommended for further characterization. Signed: Phi Villalta MDReport Verified Date/Time: 12/17/2018 20:15:26 RAD, CHEST, 1 VIEW, NON DEPT 2018-12-17 20:07:00Reason for exam:->GENERALIZED WEAKNESS, NOT ASSOCIATED WITH EXTREMITIESShould this be performed at the bedside?->YesFINAL REPORT RAD, CHEST, 1 VIEW, NON DEPT CLINICAL HISTORY: GENERALIZED WEAKNESS, NOT ASSOCIATED WITH EXTREMITIES TECHNIQUE: Single view of the chest. COMPARISON: September 26, 2015 IMPRESSION: Bilateral reticular opacities have slightly increased compared to prior examination suggesting progressive chronic interstitial fibrosis. Superimposed infectious or inflammatory pneumonitis or mild edema cannot be excluded. No focal lung consolidation, pneumothorax or significant pleural effusion. The cardiomediastinal silhouette is within normal limits. Osseous structures are stable. Signed: Phi Villaltaeport Verified Date/Time: 12/17/2018 20:07:33 RAD, CHEST, 1 VIEW, NON DEPT 2017-10-11 10:48:00Reason for exam:->leukocytosisShould this be performed at the bedside?->YesFINAL REPORT AP CHEST Comparison exam: 09/26/2015 History provided: Leukocytosis Heart size normal. Lungs free of acute disease and vascularity normal. IMPRESSION: No acute findings. Signed: Rubio Judd MDReport Verified Date/Time: 10/11/2017 10:48:07 Reading Location: [facility] Diagnostic Imaging Reading Room - [facility] 1310.12 TSH/FREE T4 IF INDICATED 2017-10-10 13:17:00 Test Item Value Reference Range Interpretation Comments THYROID STIMULATING HORMONE 0.51 uIU/mL 0.35-5.50 (BEAKER) (test code = 772) RAD, ABDOMEN/KUB, 1 VIEW [id number] 11:30:00Reason for exam:->Constipation. FINAL REPORT KUB History provided: Constipation No small or large bowel dilatation. Specifically, no significant fecal burden within the colon is evident. Multilevel laminectomy and fusion extending from L2 through L5. Signed: Rubio Judd MDReport Verified Date/Time: 10/10/2017 11:30:17 Reading Location: [facility] Diagnostic Imaging Reading Room - [facility] 1.310.12 BASIC METABOLIC [id number] 04:36:00 Test Item Value Reference Range Interpretation Comments SODIUM (BEAKER) 140 meq/L 135-148 (test code = 381) POTASSIUM (BEAKER) 3.1 meq/L 3.5-5.5 L (test code = 379) CHLORIDE (BEAKER) 103 meq/L 98-106 (test code = 382) CO2 (BEAKER) (test 25 meq/L 20-31 code = 355) BLOOD UREA NITROGEN 5 mg/dL 10-26 L (BEAKER) (test code = 354) CREATININE (BEAKER) 0.70 mg/dL 0.50-1.20 (test code = 358) GLUCOSE RANDOM 106 mg/dL 70-110 (BEAKER) (test code = 652) CALCIUM (BEAKER) 8.9 mg/dL 8.5-10.5 (test code = 697) EGFR (BEAKER) (test 111 mL/min/1.73 ESTIM ATED GFR IS code = 1092) sq m NOT ACCURATE CREATININE CLEARANCE IN PREDICTING GLOMERULAR FILTRATION RATE . ESTIMATED GFR I S NOT APPLICABLE FOR DIALYSIS PATIEN TS. CBC W/PLT COUNT & AUTO [id number] 04:11:00 Test Item Value Reference Range Interpretation Comments WHITE BLOOD CELL COUNT (BEAKER) 10.3 K/ L 4.0-10.0 H (test code = 775) RED BLOOD CELL COUNT (BEAKER) 4.20 M/ L 4.20-5.80 (test code = 761) HEMOGLOBIN (BEAKER) (test code = 13.3 GM/DL 13.0-16.8 410) HEMATOCRIT (BEAKER) (test code = 38.4 % 40.0-50.0 L 411) MEAN CORPUSCULAR VOLUME (BEAKER) 91.5 fL 82.0-98.0 (test code = 753) MEAN CORPUSCULAR HEMOGLOBIN 31.7 pg 27.0-33.0 (BEAKER) (test code = 751) MEAN CORPUSCULAR HEMOGLOBIN CONC 34.7 GM/DL 32.0-36.0 (BEAKER) (test code = 752) RED CELL DISTRIBUTION WIDTH 12.4 % 12.0-15.0 (BEAKER) (test code = 412) PLATELET COUNT (BEAKER) (test 202 K/CU MM 150-430 code = 756) MEAN PLATELET VOLUME (BEAKER) 7.8 fL 6.5-10.5 (test code = 754) NUCLEATED RED BLOOD CELLS 0 /100 WBC 0-0 (BEAKER) (test code = 413) NEUTROPHILS RELATIVE PERCENT 73 % (BEAKER) (test code = 429) LYMPHOCYTES RELATIVE PERCENT 19 % (BEAKER) (test code = 430) MONOCYTES RELATIVE PERCENT 8 % (BEAKER) (test code = 431) EOSINOPHILS RELATIVE PERCENT 0 % (BEAKER) (test code = 432) BASOPHILS RELATIVE PERCENT 0 % (BEAKER) (test code = 437) NEUTROPHILS ABSOLUTE COUNT 7.50 K/ L 1.80-8.00 (BEAKER) (test code = 670) LYMPHOCYTES ABSOLUTE COUNT 1.90 K/ L 1.48-4.50 (BEAKER) (test code = 414) MONOCYTES ABSOLUTE COUNT (BEAKER) 0.80 K/ L 0.00-1.30 (test code = 415) EOSINOPHILS ABSOLUTE COUNT 0.00 K/ L 0.00-0.50 (BEAKER) (test code = 416) BASOPHILS ABSOLUTE COUNT (BEAKER) 0.00 K/ L 0.00-0.20 (test code = 417) URINALYSIS W/ [id number] 17:40:00 Test Item Value Reference Range Interpretation Comments COLOR (BEAKER) (test code = 470) Yellow CLARITY (BEAKER) (test code = 469) Clear SPECIFIC GRAVITY UA (BEAKER) (test 1.023 1.001-1.035 code = 468) PH UA (BEAKER) (test code = 467) 6.0 5.0-8.0 PROTEIN UA (BEAKER) (test code = Negative Negative 464) GLUCOSE UA (BEAKER) (test code = Negative Negative 365) KETONES UA (BEAKER) (test code = Negative Negative 371) BILIRUBIN UA (BEAKER) (test code = Negative Negative 462) BLOOD UA (BEAKER) (test code = 461) Small Negative A NITRITE UA (BEAKER) (test code = Negative Negative 465) LEUKOCYTE ESTERASE UA (BEAKER) (test Negative Negative code = 466) UROBILINOGEN UA (BEAKER) (test code < mg/dL 0.2-1.0 = 463) RBC UA (BEAKER) (test code = 519) 1 /HPF WBC UA (BEAKER) (test code = 520) 1 /HPF MUCUS (BEAKER) (test code = 1574) Rare SQUAMOUS EPITHELIAL (BEAKER) (test < /HPF code = 516) SOURCE(BEAKER) (test code = 2795) CT, [id number] 17:14:00Reason for exam:->ABDOMINAL PAINWhat is the patient's sedation requirement?->No SedationFINAL REPORT CT, ABDOMEN \\T\\ PELVIS, WITH IV CONTRAST INDICATION: "ABDOMINAL P AINpelvic pain" COMPARISON: CT abdomen and pelvis in 2012 TECHNIQUE: Post contrast axially orientedimages were obtained from the diaphragms through the pelvis. Coronal and sagittal reformats were provided. DOSE REDUCTION: Dose modulation, iterative reconstruction, and/or weight-based adjustment of the mA/kV was utilized to reduce the radiation dose to as low as reasonably achievable. FINDINGS: Fibrotic changes in the lung bases. No acute abnormality of the solid abdominal viscera.Fatty liver. Large colonic stool ball. No proximal, high-grade obstruction. The colonic stool burden is high however .Distended bladder.Normal small bowel.Appendix not definitively visualized although there is no significant right lower quadrant inflammatory change. Posterior lumbar interbody fusion hardware. No evidence of complication. IMPRESSION:Fecal impaction of the rectosigmoid.Distended bladder. Signed: Fatimah Trent MDReport Verified Date/Time: 10/09/2017 17:14:05 Reading Location: [address] Reading Room [id number] 16:17:00 Test Item Value Reference Range Interpretation Comments LIPASE (BEAKER) (test code = 749) 18 U/L 8-78 COMPREHENSIVE METABOLIC [id number] 16:17:00 Test Item Value Reference Range Interpretation Comments TOTAL PROTEIN 7.6 gm/dL 6.0-8.5 (BEAKER) (test code = 770) ALBUMIN (BEAKER) 4.4 g/dL 3.5-5.0 (test code = 1145) ALKALINE PHOSPHATASE 80 U/L 30-115 (BEAKER) (test code = 346) BILIRUBIN TOTAL 0.6 mg/dL 0.1-1.3 (BEAKER) (test code = 377) SODIUM (BEAKER) (test 138 meq/L 135-148 code = 381) POTASSIUM (BEAKER) 3.6 meq/L 3.5-5.5 (test code = 379) CHLORIDE (BEAKER) 97 meq/L 98-106 L (test code = 382) CO2 (BEAKER) (test 28 meq/L 20-31 code = 355) BLOOD UREA NITROGEN 6 mg/dL 10-26 L (BEAKER) (test code = 354) CREATININE (BEAKER) 0.77 mg/dL 0.50-1.20 (test code = 358) GLUCOSE RANDOM 142 mg/dL 70-110 H (BEAKER) (test code = 652) CALCIUM (BEAKER) 9.2 mg/dL 8.5-10.5 (test code = 697) AST (SGOT) (BEAKER) 18 U/L 5-40 (test code = 353) ALT (SGPT) (BEAKER) 8 U/L 6-50 (test code = 347) EGFR (BEAKER) (test 99 mL/min/1.73 ESTIMA SAMANTHA GFR IS code = 1092) sq m NOT ACCURATE CREATININE CLEARANCE IN PREDICTING GLOMERULAR FILTRATION RATE . ESTIMATED GFR I S NOT APPLICABLE FOR DIALYSIS PATIEN TS. CBC W/PLT COUNT & AUTO [id number] 16:03:00 Test Item Value Reference Range Interpretation Comments WHITE BLOOD CELL COUNT (BEAKER) 20.6 K/ L 4.0-10.0 H (test code = 775) RED BLOOD CELL COUNT (BEAKER) 4.49 M/ L 4.20-5.80 (test code = 761) HEMOGLOBIN (BEAKER) (test code = 14.0 GM/DL 13.0-16.8 410) HEMATOCRIT (BEAKER) (test code = 41.8 % 40.0-50.0 411) MEAN CORPUSCULAR VOLUME (BEAKER) 93.0 fL 82.0-98.0 (test code = 753) MEAN CORPUSCULAR HEMOGLOBIN 31.0 pg 27.0-33.0 (BEAKER) (test code = 751) MEAN CORPUSCULAR HEMOGLOBIN CONC 33.4 GM/DL 32.0-36.0 (BEAKER) (test code = 752) RED CELL DISTRIBUTION WIDTH 13.2 % 12.0-15.0 (BEAKER) (test code = 412) PLATELET COUNT (BEAKER) (test 249 K/CU MM 150-430 code = 756) MEAN PLATELET VOLUME (BEAKER) 7.7 fL 6.5-10.5 (test code = 754) NUCLEATED RED BLOOD CELLS 0 /100 WBC 0-0 (BEAKER) (test code = 413) NEUTROPHILS RELATIVE PERCENT 92 % (BEAKER) (test code = 429) LYMPHOCYTES RELATIVE PERCENT 3 % (BEAKER) (test code = 430) MONOCYTES RELATIVE PERCENT 4 % (BEAKER) (test code = 431) EOSINOPHILS RELATIVE PERCENT 0 % (BEAKER) (test code = 432) BASOPHILS RELATIVE PERCENT 0 % (BEAKER) (test code = 437) NEUTROPHILS ABSOLUTE COUNT 19.00 K/ L 1.80-8.00 H (BEAKER) (test code = 670) LYMPHOCYTES ABSOLUTE COUNT 0.60 K/ L 1.48-4.50 L (BEAKER) (test code = 414) MONOCYTES ABSOLUTE COUNT (BEAKER) 0.90 K/ L 0.00-1.30 (test code = 415) EOSINOPHILS ABSOLUTE COUNT 0.00 K/ L 0.00-0.50 (BEAKER) (test code = 416) BASOPHILS ABSOLUTE COUNT (BEAKER) 0.00 K/ L 0.00-0.20 (test code = 417) CLOSTRIDIUM DIFFICILE TOXIN [id number] 10:16:00 Test Item Value Reference Range Interpretation Comments CLOSTRIDIUM DIFFICILE TOXIN, PCR Not Detected Not Detected (BEAKER) (test code = 1525) This qualitative real-time polymerase chain reaction assay detects the tcdB gene, encoded on the C.difficile pathogenicity locus (PaLoc). The product of tcdB, toxin B, is a cytotoxin essential for causing C.difficile-associated disease (CDAD) and is found in virtually all toxigenic C.difficile.This assay is performed for patients suspected of having either community-acquired or nosocomial CDAD. Accordingly, only symptomatic patients should be tested and formed stools will be rejected unless ileus is present (i.e., specified when ordering). Patients may be colonized with toxigenic C.difficile strains not causing active disease; therefore, clinical correlation is needed when deciding how to manage patients with a positive test result.The assay has not been validated as a test of cure as amplifiable nucleic acid may persist after effective treatment; therefore, follow-up testing of a positive result is not recommended.COMPREHENSIVE METABOLIC [id number] 11:28:00 Test Item Value Reference Range Interpretation Comments TOTAL PROTEIN 8.5 gm/dL 6.0-8.5 Specimen sligh tly (BEAKER) (test code = hemoly zed 770) ALBUMIN (BEAKER) 4.5 g/dL 3.5-5.0 Specimen sl ightly (test code = 1145) hemolyzed ALKALINE PHOSPHATASE 124 U/L 30-115 H (BEAKER) (test code = 346) BILIRUBIN TOTAL 0.4 mg/dL 0.1-1.3 Specimen sli ghtly (BEAKER) (test code = hemoly zed 377) SODIUM (BEAKER) (test 136 meq/L 135-148 code = 381) POTASSIUM (BEAKER) 4.3 meq/L 3.5-5.5 Specimen slightly (test code = 379) hemolyzed CHLORIDE (BEAKER) 97 meq/L 98-106 L (test code = 382) CO2 (BEAKER) (test 22 meq/L 20-31 code = 355) BLOOD UREA NITROGEN 11 mg/dL 10-26 (BEAKER) (test code = 354) CREATININE (BEAKER) 1.26 mg/dL 0.50-1.20 H Specimen slightly (test code = 358) hemolyzed GLUCOSE RANDOM 115 mg/dL 70-110 H (BEAKER) (test code = 652) CALCIUM (BEAKER) 9.9 mg/dL 8.5-10.5 (test code = 697) AST (SGOT) (BEAKER) 26 U/L 5-40 Specimen slightly (test code = 353) hemolyzed ALT (SGPT) (BEAKER) 11 U/L 6-50 Specimen slightly (test code = 347) hemolyzed EGFR (BEAKER) (test 57 mL/min/1.73 ESTIMA SAMANTHA GFR IS code = 1092) sq m NOT ACCURATE CREATININE CLEARANCE IN PREDICTING GLOMERULAR FILTRATION RATE . ESTIMATED GFR I S NOT APPLICABLE FOR DIALYSIS PATIEN TS. URINALYSIS W/ [id number] 11:13:00 Test Item Value Reference Range Interpretation Comments COLOR (BEAKER) (test code = 470) Yellow CLARITY (BEAKER) (test code = 469) Hazy SPECIFIC GRAVITY UA (BEAKER) (test 1.015 1.001-1.035 code = 468) PH UA (BEAKER) (test code = 467) 6.0 5.0-8.0 PROTEIN UA (BEAKER) (test code = 30 mg/dL Negative A 464) GLUCOSE UA (BEAKER) (test code = Negative Negative 365) KETONES UA (BEAKER) (test code = 20 mg/dL Negative A 371) BILIRUBIN UA (BEAKER) (test code = Negative Negative 462) BLOOD UA (BEAKER) (test code = Small Negative A 461) NITRITE UA (BEAKER) (test code = Negative Negative 465) LEUKOCYTE ESTERASE UA (BEAKER) Negative Negative (test code = 466) UROBILINOGEN UA (BEAKER) (test < mg/dL 0.2-1.0 code = 463) RBC UA (BEAKER) (test code = 519) 3 /HPF WBC UA (BEAKER) (test code = 520) 4 /HPF BACTERIA (BEAKER) (test code = Occasional 517) MUCUS (BEAKER) (test code = 1574) Few HYALINE CASTS (BEAKER) (test code 6 /LPF = 514) SOURCE(BEAKER) (test code = 6813) CBC W/PLT COUNT & AUTO [id number] 11:12:00 Test Item Value Reference Range Interpretation Comments WHITE BLOOD CELL COUNT (BEAKER) 8.9 K/ L 4.0-10.0 (test code = 775) RED BLOOD CELL COUNT (BEAKER) 5.38 M/ L 4.20-5.80 (test code = 761) HEMOGLOBIN (BEAKER) (test code = 16.5 GM/DL 13.0-16.8 410) HEMATOCRIT (BEAKER) (test code = 49.3 % 40.0-50.0 411) MEAN CORPUSCULAR VOLUME (BEAKER) 91.7 fL 82.0-98.0 (test code = 753) MEAN CORPUSCULAR HEMOGLOBIN 30.6 pg 27.0-33.0 (BEAKER) (test code = 751) MEAN CORPUSCULAR HEMOGLOBIN CONC 33.4 GM/DL 32.0-36.0 (BEAKER) (test code = 752) RED CELL DISTRIBUTION WIDTH 13.1 % 12.0-15.0 (BEAKER) (test code = 412) PLATELET COUNT (BEAKER) (test 257 K/CU MM 150-430 code = 756) MEAN PLATELET VOLUME (BEAKER) 7.8 fL 6.5-10.5 (test code = 754) NUCLEATED RED BLOOD CELLS 0 /100 WBC 0-0 (BEAKER) (test code = 413) NEUTROPHILS RELATIVE PERCENT 66 % (BEAKER) (test code = 429) LYMPHOCYTES RELATIVE PERCENT 19 % (BEAKER) (test code = 430) MONOCYTES RELATIVE PERCENT 5 % (BEAKER) (test code = 431) EOSINOPHILS RELATIVE PERCENT 9 % (BEAKER) (test code = 432) BASOPHILS RELATIVE PERCENT 0 % (BEAKER) (test code = 437) NEUTROPHILS ABSOLUTE COUNT 5.80 K/ L 1.80-8.00 (BEAKER) (test code = 670) LYMPHOCYTES ABSOLUTE COUNT 1.70 K/ L 1.48-4.50 (BEAKER) (test code = 414) MONOCYTES ABSOLUTE COUNT (BEAKER) 0.50 K/ L 0.00-1.30 (test code = 415) EOSINOPHILS ABSOLUTE COUNT 0.80 K/ L 0.00-0.50 H (BEAKER) (test code = 416) BASOPHILS ABSOLUTE COUNT (BEAKER) 0.00 K/ L 0.00-0.20 (test code = 417)
[2020-03-09] MEDS ORDERED: MORPHINE 2 MG/ML SYR ONE (11:02)
[2020-03-09] MEDS ORDERED: ONDANSETRON 4 MG/2 ML VIAL ONE (11:02)
[2020-03-09 11:13] LABS: Absolute Lymphocytes (CBC) 0.6 K/uL (0.7-4.9); Basophils % 0.2 % (0-1.3); Hematocrit 35.8 % (39.6-49.0); Lymphocytes % 6.8 % (15.3-44.8); MPV 8.5 fL (7.6-11.3)
[2020-03-09 11:17] LABS: Protime INR 0.98
[2020-03-09 11:23] LABS: BUN Blood Urea Nitrogen 16 mg/dL (7-18); Bicarbonate 30 mmol/L (21-32); Glucose Level 138 mg/dL (74-106); Potassium 3.6 mmol/L (3.5-5.1); Sodium Level 140 mmol/L (136-145)
--- NOTE | 2020-03-09 11:29 | EDPHYS ---
Physician Documentation [facility] Name: Richard Infante Age: 74 yrs Sex: Male : 1945 Arrival Date: 03/09/2020 Time: 10:27 Bed 18 Private MD: ED Physician Clinton Sears HPI: 03/09 10:31 This 74 yrs old Unknown Male presents to ER via Unassigned with complaints of Fall rn Injury, Hip Injury. 10:31 Details of fall: The patient fell from an upright position, while walking. Onset: The rn symptoms/episode began/occurred yesterday. Associated injuries: The patient sustained left hip. Severity of symptoms: At their worst the symptoms were moderate, in the emergency department the symptoms are unchanged. The patient has not experienced similar symptoms in the past. The patient has not recently seen a physician. Brought from [facility], dementia unit, fall from standing yesterday, put back in bed by [facility] staff, 911 not called until today. . Historical: - Allergies: 10:35 No Known Allergies; tw2 - PMHx: 10:35 Back pain; Dementia; encephalopathy; Depression; tw2 - Immunization history:: Adult Immunizations. - Social history:: Smoking status: . - Immunization history: Last tetanus immunization: unknown. - Family history:: not pertinent. - Hospitalizations: : No recent hospitalization is reported. - History obtained from: EMS. ROS: 10:32 Unable to obtain ROS due to baseline dementia. rn Exam: 10:32 Constitutional: Thin male, no acute distress unless moving left leg Head/Face: rn Normocephalic, atraumatic. ENT: No oral trauma. Neck: No midline tenderness Chest/axilla: Normal chest wall appearance and motion. Nontender with no deformity. No lesions are appreciated. Cardiovascular: Regular rate and rhythm. No pulse deficits. Respiratory: No increased work of breathing, no retractions or nasal flaring. Abdomen/GI: Soft, non-tender MS/ Extremity: Pulses equal, no cyanosis Neuro: Awake, alert 11:03 ECG was reviewed by the Attending Physician. rn Vital Signs: 10:28 BP 136 / 82; Pulse 119; Resp 16; Temp 98.7(O); Pulse Ox 100% on R/A; Weight 65.77 kg; tw2 Height 5 ft. 10 in. (177.80 cm); 12:01 BP 130 / 80; Pulse 109; Resp 15; Pulse Ox 98% on R/A; tw2 13:00 BP 144 / 94; Pulse 116; Resp 17; Pulse Ox 97% on R/A; tw2 10:28 Body Mass Index 20.81 (65.77 kg, 177.80 cm) tw2 Marcelo Coma Score: 10:28 Eye Response: to pain(2). Verbal Response: none(1). Motor Response: withdraws from tw2 pain(4). Total: 7. 10:28 pt at baseline per Claude at this time. tw2 Trauma Score (Adult): 10:28 Eye Response: spontaneous(1); Verbal Response: none(0); Motor Response: withdraws from tw2 pain(1); Systolic BP: > 89 mm Hg(4); Respiratory Rate: 10 to 29 per min(4); Pigeon Score: 9; Trauma Score: 10; pt is at baseline at this time. MDM: 10:27 Patient medically screened. rn 11:27 Differential diagnosis: contusion, fracture. Data reviewed: vital signs, nurses notes, returned goods inspector test result(s), radiologic studies, plain films, and as a result, I will admit patient. Counseling: I had a detailed discussion with the patient and/or guardian regarding: the historical points, exam findings, and any diagnostic results supporting the discharge/admit diagnosis, lab results, radiology results, the need for further work-up and treatment in the hospital. Response to treatment: the patient's symptoms have mildly improved after treatment, and as a result, I will admit patient. Admission orders: after a detailed discussion of the patient's condition and case, the admit orders are written by me. ED course: Will admit to [facility] for left hip fracture, consult Dr. Casey. . 03/09 10:28 Order name: CBC with Diff; Complete Time: 11:45 rn 03/09 10:28 Order name: Basic Metabolic Panel; Complete Time: 11:45 rn 03/09 10:28 Order name: Protime (+inr); Complete Time: 11:45 rn 03/09 10:28 Order name: Ptt, Activated; Complete Time: 11:45 rn 03/09 11:44 Order name: Manual Differential; Complete Time: 11:45 EDMS 03/09 12:04 Order name: CBC with Automated Diff EDMS 03/09 10:28 Order name: XRAY Hip LEFT 2 view; Complete Time: 11:53 rn 03/09 10:28 Order name: XRAY Pelvis; Complete Time: 11:53 rn 03/09 10:32 Order name: CT Head Brain wo Cont; Complete Time: 11:53 rn 03/09 12:04 Order name: CBC with Automated Diff EDMS 03/09 12:04 Order name: Comprehensive Metabolic Panel EDMS 03/09 12:04 Order name: Comprehensive Metabolic Panel EDMS 03/09 10:28 Order name: EKG; Complete Time: 10:29 rn 03/09 10:28 Order name: EKG - Nurse/Tech; Complete Time: 11:05 rn 03/09 10:28 Order name: IV Start; Complete Time: 11:05 rn 03/09 12:04 Order name: CONS Pharmacy Consult EDMS 03/09 12:04 Order name: Heart Healthy EDMS EC:03 Rate is 115 beats/min. Rhythm is regular. QRS [place] is Normal. [place] interval is normal. rn QRS interval is normal. QT interval is normal. No Q waves. T waves are Normal. No ST changes noted. Clinical impression: Sinus tachycardia. Interpreted by me. Reviewed by me. Administered Medications: 11:03 Drug: Zofran (Ondansetron) 4 mg Route: IVP; Site: right hand; tw2 11:04 Drug: morphine 2 mg Route: IVP; Site: right hand; tw2 Disposition: 03/09/20 11:28 Hospitalization ordered by [facility] for Inpatient Admission. Preliminary diagnosis is Displaced intertrochanteric fracture of left femur. - Bed requested for Telemetry/MedSurg (Inpatient). - Status is Inpatient Admission. tw2 - Condition is Stable. - Problem is new. - Symptoms have improved. Signatures: Dispatcher [employer] EDMS Clinton Sears MD MD rn Wise, Tara, RN RN tw2 Jeannie Lopez Corrections: (The following items were deleted from the chart) 12:36 11:28 Hospitalization Ordered by [facility] MD for Inpatient Admission. Preliminary eb diagnosis is Displaced intertrochanteric fracture of left femur. Bed requested for Telemetry/MedSurg (Inpatient). Status is Inpatient Admission. Condition is Stable. Problem is new. Symptoms have improved. rn 13:29 12:36 03/09/2020 11:28 Hospitalization Ordered by [facility]han Torres MD for Inpatient tw2 Admission. Preliminary diagnosis is Displaced intertrochanteric fracture of left femur. Bed requested for Telemetry/MedSurg (Inpatient). Status is Inpatient Admission. Condition is Stable. Problem is new. Symptoms have improved. eb
--- NOTE | 2020-03-09 11:29 | ER ---
Nurse's Notes [facility] Name: Richard Infante Age: 74 yrs Sex: Male : 1945 Arrival Date: 03/09/2020 Time: 10:27 Bed 18 Private MD: Diagnosis: Displaced intertrochanteric fracture of left femur Presentation: 03/09 10:28 Chief complaint: EMS states: pt from [facility] fell yesterday around 6pm, tw2 they saw it on film, placed him back in bed, normally is ambulatory and baseline a\T\ox1, they say today he is c/o pain to LEFT hip, deformity is noted, vs stable, BLG 166. Coronavirus screen: At this time, the client does not indicate any symptoms associated with coronavirus-19. Ebola Screen: Patient denies travel to an Ebola-affected area in the 21 days before illness onset. Initial Sepsis Screen: Does the patient meet any 2 criteria? HR > 90 bpm. No. Patient's initial sepsis screen is negative. Does the patient have a suspected source of infection? No. Patient's initial sepsis screen is negative. Risk Assessment: Do you want to hurt yourself or someone else? Patient reports no desire to harm self or others. Onset of symptoms was March 09, 2020. 10:28 Method Of Arrival: EMS: [facility] tw2 10:28 Acuity: FABIÁN 3 tw2 10:28 Care prior to arrival: None. Mechanism of Injury: Fall from standing position. Trauma tw2 event details: Injury occurred in the [facility]. Triage Assessment: 10:28 General: Appears uncomfortable, slender, Behavior is pt is at baseline. Pain: Complains tw2 of pain in left hip. Trauma Activation: Not Applicable Physician: ED Physician; Name: ; Notified At: ; Arrived At: Physician: General Surgeon; Name: ; Notified At: ; Arrived At: Physician: Radiology; Name: ; Notified At: ; Arrived At: Physician: Respiratory; Name: ; Notified At: ; Arrived At: Physician: Lab; Name: ; Notified At: ; Arrived At: Historical: - Allergies: 10:35 No Known Allergies; tw2 - PMHx: 10:35 Back pain; Dementia; encephalopathy; Depression; tw2 - Immunization history:: Adult Immunizations. - Social history:: Smoking status: . - Immunization history: Last tetanus immunization: unknown. - Family history:: not pertinent. - Hospitalizations: : No recent hospitalization is reported. - History obtained from: EMS. Screenin:28 Abuse screen: Denies threats or abuse. Nutritional screening: No deficits noted. tw2 Tuberculosis screening: No symptoms or risk factors identified. Fall Risk Secondary diagnosis (15 points) dementia, impaired mobility. Primary Survey: 10:28 NO uncontrolled hemorrhage observed. A: The patient is alert. Airway: patent. tw2 Breathing/Chest: Respiratory pattern: regular, Respiratory effort: spontaneous, unlabored, Breath sounds: clear, bilaterally. Chest inspection: symmetrical rise and fall of the chest. Circulation: Heart tones present. Disability Alert. Exposure/Environment: All clothing and personal items were removed. Forensic evidence collection is not deemed to be indicated at this time. Items placed in patient belonging bag. There is no evidence of uncontrolled external bleeding. Obvious injury(ies) are noted at this time: appears to be deformity of the LEFT hip. 11:30 Reassessment Airway Airway Patent Breathing/Chest Respiratory pattern Regular tw2 Respiratory effort Spontaneous Unlabored Breath sounds Clear Chest inspection Symmetrical Circulation Heart tones Present Disability Alert. Secondary Survey: 10:28 HEENT: No deficits noted. Gastrointestinal: Abdomen is soft, flat, Bowel sounds present tw2 in all quadrants. : No signs and/or symptoms were reported regarding the genitourinary system. Musculoskeletal: Range of motion: limited in left hip present in LEFT hip. Assessment: 10:28 General: see trauma assessment. tw2 10:35 Reassessment: xray at bedside at this time. tw2 12:01 Reassessment: Patient appears in no apparent distress at this time. No changes from tw2 previously documented assessment. Patient and/or family updated on plan of care and expected duration. Pain level reassessed. 12:39 Reassessment: Attempted to call report, nurse unavailable. sv 13:12 Reassessment: Patient appears in no apparent distress at this time. No changes from tw2 previously documented assessment. Patient and/or family updated on plan of care and expected duration. Pain level reassessed. Vital Signs: 10:28 BP 136 / 82; Pulse 119; Resp 16; Temp 98.7(O); Pulse Ox 100% on R/A; Weight 65.77 kg; tw2 Height 5 ft. 10 in. (177.80 cm); 12:01 BP 130 / 80; Pulse 109; Resp 15; Pulse Ox 98% on R/A; tw2 13:00 BP 144 / 94; Pulse 116; Resp 17; Pulse Ox 97% on R/A; tw2 10:28 Body Mass Index 20.81 (65.77 kg, 177.80 cm) tw2 Marcelo Coma Score: 10:28 Eye Response: to pain(2). Verbal Response: none(1). Motor Response: withdraws from tw2 pain(4). Total: 7. 10:28 pt at baseline per [place] at this time. tw2 Trauma Score (Adult): 10:28 Eye Response: spontaneous(1); Verbal Response: none(0); Motor Response: withdraws from tw2 pain(1); Systolic BP: > 89 mm Hg(4); Respiratory Rate: 10 to 29 per min(4); Colora Score: 9; Trauma Score: 10; pt is at baseline at this time. ED Course: 10:27 Patient arrived in ED. tw2 10:27 Clinton Sears MD is Attending Physician. rn 10:28 Patient maintains SpO2 saturation greater than 95% on room air. tw2 10:28 Thermoregulation: warm blanket given to patient. tw2 10:28 Arm band placed on. tw2 10:33 Triage completed. tw2 10:45 Patient has correct armband on for positive identification. Placed in gown. Bed in low sv position. Call light in reach. Side rails up X2. desk monitor on. Pulse ox on. NIBP on. 10:50 EKG done, by ED staff, reviewed by Clinton Sears MD. sv 11:00 Inserted saline lock: 20 gauge in right wrist, using aseptic technique. Blood sv collected. Flushed right with 5 ml normal saline. 11:04 Jenifer Calderon, ALEXSANDRA is Primary Nurse. tw2 11:13 XRAY Hip LEFT 2 view In Process Unspecified. EDMS 11:14 XRAY Pelvis In Process Unspecified. EDMS 11:28 [facility] MD is Hospitalizing Provider. rn 11:32 CT Head Brain wo Cont In Process Unspecified. EDMS 13:12 No provider procedures requiring assistance completed. Patient admitted, IV remains in tw2 place. Administered Medications: 11:03 Drug: Zofran (Ondansetron) 4 mg Route: IVP; Site: right hand; tw2 11:04 Drug: morphine 2 mg Route: IVP; Site: right hand; tw2 Intake: 13:12 PO: 0ml; Total: 0ml. tw2 Outcome: 11:28 Decision to Hospitalize by Provider. rn 13:12 Admitted to Med/surg accompanied by tech, via stretcher, room 232, with chart, Report tw2 called to ALEXSANDRA Tafoya 13:12 Condition: stable tw2 13:12 Instructed on the need for admit. 13:12 Patient's length of stay in the Emergency Department was greater than 2 hours. d/t tw2 decision for admission and surgeryPatient's length of stay extended due to 13:29 Patient left the ED. tw2 Signatures: Dispatcher [employer] Berenice Navarro, Clinton Falcon RN, MD MD rn Wise, Tara, RN RN tw2 Corrections: (The following items were deleted from the chart) 12:12 10:28 General: see triage assessment. tw2 tw2 13:11 10:28 Chief complaint: EMS states: pt from [facility] fell yesterday tw2 around 6pm, they saw it on film, placed him back in bed, normally is ambulatory and baseline a\T\ox1, they say today he is c/o pain to LEFT hip, deformity is noted, bs stable, BLG 166 tw2
[2020-03-09 11:44] LABS: Blood Morphology Comment NOT SEEN (NOT SEEN); Platelet Estimate DECR
--- NOTE | 2020-03-09 11:46 | RAD REPORT ---
EXAM DESCRIPTION: CT - Head Brain Wo Cont - 03/09/2020 11:32 am CLINICAL HISTORY: fall Fall, trauma, head injury COMPARISON: No comparisons TECHNIQUE: All CT scans are performed using dose optimization technique as appropriate and may inclu de automated exposure control or mA/KV adjustment according to patient size. FINDINGS: No intracranial hemorrhage, hydrocephalus or extra-axial fluid collection.Mild generalized brain atrophy is present with advanced periventricular and deep white matter chronic microvascular i schemic changes.No areas of brain edema or evidence of midline shift. The paranasal sinuses and mastoids are clear. The calvarium is intact. IMPRESSION: No acute intracranial abnormality.
--- NOTE | 2020-03-09 11:48 | RAD REPORT ---
EXAM DESCRIPTION: RAD - Pelvis - 03/09/2020 11:13 am CLINICAL HISTORY: BLUNT TRAUMA COMPARISON: No comparisons FINDINGS: Intratrochanteric fracture the proximal left femur is seen with mild varus angulation.
--- NOTE | 2020-03-09 11:50 | RAD REPORT ---
EXAM DESCRIPTION: RAD - Hip Left 2 View - 03/09/2020 11:13 am CLINICAL HISTORY: PAIN COMPARISON: No comparisons FINDINGS: Intratrochanteric fracture the proximal left femur is seen with varus angulation. No dislo cation evident.
[2020-03-09] MEDS ORDERED: ACETAMINOPHEN 500 MG TAB PO PRN (12:01)
[2020-03-09] MEDS ORDERED: ONDANSETRON 4 MG/2 ML VIAL IV PRN (12:01)
--- NOTE | 2020-03-09 12:20 | P.HP ---
Certification for Inpatient Patient admitted to: Inpatient With expected LOS: >2 Midnights Patient will require the following post-hospital care: Detention Practitioner: I am a practitioner with admitting privileges, knowledge of patient current condition, hospital course, and medical plan of care. Services: Services provided to patient in accordance with Admission requirements found in Title 42 Section 412.3 of the Code of Federal Regulations Patient History Date of Service: 03/09/20 Reason for admission: With history of falls, pain in left hip History of Present Illness: 74-year-old male with past medical history of dementia brought in from a skilled nursing dementia unit after suffering a fall from upright position happened yesterday and has been complaining of pain in the left hip and difficulty in ambulating. At the time of interview patient is drowsy and difficult to arouse hence most of the history is obtained from the chart review and talking to the ER physician, Apparently patient has been dementia unit and when he was ambulating he suffered a fall from upright position, fell to the ground on the left hip He had difficulty in ambulating after the episode. Patient was brought to the ER for further workup. Workup in the ER was consistent with left hip fracture and was admitted for further management Home medications list reviewed: Yes - Past Medical/Surgical History Past Medical History: Reviewed- Non-Contributory -: Dementia Past Surgical History: Unable to obtain - Family History Family History: Reviewed- Non-Contributory Review of Systems is unable to be obtained Physical Examination - Vital Signs Temperature: 98.8 F Blood Pressure: 132/72 Pulse: 102 Respirations: 18 - Physical Exam General: Other (Drowsy , Difficult to arouse ,) HEENT: Atraumatic, Normocephalic Neck: Supple Respiratory: Clear to auscultation bilaterally, Normal air movement Cardiovascular: Normal S1 S2, Other (Tachycardia ) Capillary refill: <2 Seconds Gastrointestinal: Soft and benign, W/out hepatosplenomegaly Musculoskeletal: No clubbing, Tenderness, Other (Left lower extremity , externally rotated ) Integumentary: No rashes Neurological: Other (Drowsy ,) Lymphatics: No axilla or inguinal lymphadenopathy - Studies Laboratory Data (last 24 hrs) 03/09/20 11:05: PT 11.6, INR 0.98, APTT 27.3 03/09/20 11:05: Sodium 140, Potassium 3.6, BUN 16, Creatinine 0.73, Glucose 138 H 03/09/20 11:05: WBC 8.7, Hgb 12.3 L, Hct 35.8 L, Plt Count 84 L Assessment and Plan - Problems (Diagnosis) (1) Hip fracture, left Current Visit: Yes Status: Acute (2) Dementia Current Visit: Yes Status: Acute - Plan Left hip fracture Dementia Acute encephalopathy unspecified Plan Monitor closely under telemetry Pain control Ortho consulted from ER Continue home medications and titrate as needed CT head shows no acute changes Will monitor CBC, BMP Awaiting further recommendations from Ortho Will keep patient NPO post midnight GI/DVT prophylaxis Advanced directive: Full code for now Discharge Plan: Shelter - Advance Directives Does patient have a Living Will: No Does patient have a Durable POA for Healthcare: No Time Spent Managing Pts Care (In Minutes): 43
--- NOTE | 2020-03-09 14:01 | P.CNS ---
Date of Consult: 03/09/20 Reason for Consult: left hip pain Chief Complaint: With history of falls, pain in left hip History of Present Illness: 74-year-old male with past medical history of dementia brought in from a detention dementia unit after suffering a fall from upright position happened yesterday and has been complaining of pain in the left hip and difficulty in ambulating. At the time of interview patient is drowsy and difficult to arouse hence most of the history is obtained from the chart review , there was no family available. Apparently patient has been dementia unit and when he was ambulating he suffered a fall from upright position, fell to the ground on the left hip He had difficulty in ambulating after the episode. Patient was brought to the ER for further workup. Workup in the ER was consistent with left hip fracture and was admitted for further management Allergies No Known Allergies Allergy (Unverified 03/09/20 13:48) Home Medications: Acetaminophen [Tylenol] 650 mg PO Q6HP PRN 03/09/20 Divalproex [Depakote Sprinkle] 1,000 mg PO BID 03/09/20 Docusate [Colace Cap] 100 mg PO DAILY 03/09/20 Mag Hydroxide 8% [Milk Of Magnesia] 400 mg PO DAILY PRN 03/09/20 Menthol/Camphor [Biofreeze with Ilex Gel] 120 gm TP TID 03/09/20 Quetiapine [Seroquel] 100 mg PO DAILY 03/09/20 Quetiapine [Seroquel] 300 mg PO BEDTIME 03/09/20 - Past Medical/Surgical History -: Dementia Review of Systems 10-point ROS is otherwise unremarkable Physical Examination Temp Pulse Resp BP Pulse Ox 98.8 F 102 H 18 132/72 03/09/20 12:52 03/09/20 12:52 03/09/20 12:52 03/09/20 12:52 General: Demented Integumentary: No breakdown Laboratory Data (last 24 hrs) 03/09/20 11:05: PT 11.6, INR 0.98, APTT 27.3 03/09/20 11:05: Sodium 140, Potassium 3.6, BUN 16, Creatinine 0.73, Glucose 138 H 03/09/20 11:05: WBC 8.7, Hgb 12.3 L, Hct 35.8 L, Plt Count 84 L Imagings Data: : Intratrochanteric fracture the proximal left femur is seen with varus angulation. No dislocation evident. - Problems (1) Fracture, intertrochanteric, left femur Onset Date: ~03/08/20 Current Visit: Yes Status: Acute Plan: schedule left hip IM rodding tomorrow morning to follow our casses at [facility]. npo after midnight. Qualifiers: Encounter type: initial encounter Fracture type: closed Fracture alignment: nondisplaced Qualified Code(s): S72.145A - Nondisplaced intertrochanteric fracture of left femur, initial encounter for closed fracture
[2020-03-09 14:13] VITALS: BMI 28.3
[2020-03-09] MEDS: NA CHLORIDE 0.9% 1,000 ML IV SCH ×2 (14:26→23:55)
[2020-03-09] MEDS: MORPHINE 2 MG/ML SYR IV PRN (16:03)
[2020-03-10 06:04] LABS: Absolute Lymphocytes (CBC) 1.1 K/uL (0.7-4.9); Basophils % 0.3 % (0-1.3); Hematocrit 31.2 % (39.6-49.0); Lymphocytes % 10.4 % (15.3-44.8); MPV 8.3 fL (7.6-11.3); RBC Red Blood Cell Count 3.49 M/uL (4.33-5.43)
[2020-03-10 06:12] LABS: ALT/SGPT 27 U/L (12-78); AST/SGOT 39 U/L (15-37); Albumin 2.6 g/dL (3.4-5.0); Alkaline Phosphatase 67 U/L (45-117); BUN Blood Urea Nitrogen 14 mg/dL (7-18); Bicarbonate 29 mmol/L (21-32); Bilirubin Total 0.6 mg/dL (0.2-1.0); Glucose Level 102 mg/dL (74-106); Potassium 3.8 mmol/L (3.5-5.1); Protein, Total 6.3 g/dL (6.4-8.2); Sodium Level 140 mmol/L (136-145)
[2020-03-10 07:27] LABS: Blood Morphology Comment NOT SEEN (NOT SEEN); Platelet Estimate DECR
[2020-03-10] MEDS: MORPHINE 2 MG/ML SYR IV PRN (09:12)
[2020-03-10] MEDS: NA CHLORIDE 0.9% 1,000 ML IV SCH (09:17)
[2020-03-10] MEDS ORDERED: TRANEXAMIC ACID 1,000 MG in NA CHLORIDE 0.9% 50 ML IV SCH (09:30)
[2020-03-10] MEDS ORDERED: FENTANYL CITR 100 MCG/2 ML ONE (10:48)
[2020-03-10] MEDS ORDERED: LIDOCAINE 2% MPF 5 ML VIAL ONE (10:48)
[2020-03-10] MEDS ORDERED: propofoL 200 MG/20 ML VIAL IV ONE (10:48)
[2020-03-10] MEDS ORDERED: CEFAZOLIN/SWI 1gm 1 GM/10 ML SYR ONE (12:16)
[2020-03-10] MEDS ORDERED: Phenylephrine HCl 10 MG/ML 1 ML VIAL ONE ×2 (12:36→12:44)
[2020-03-10] MEDS ORDERED: NS 0.9% VIAL 20 ML ONE (12:36)
[2020-03-10] MEDS ORDERED: CEFAZOLIN SODIUM 1 GM/VIAL ONE (12:36)
--- NOTE | 2020-03-10 13:43 | OP ---
Surgeon: Blake Garza MD Construction Carpenters Helper: marketing operations assistant, [place]. Preoperative Diagnosis: Left intertrochanteric hip fracture. Postoperative Diagnosis: Left intertrochanteric hip fracture. Procedure Performed: Intramedullary rodding, left intertrochanteric hip fracture. Complications: None. Disposition: Recovery room, stable. Operative Report In Detail: The patient was taken to the operative suite, placed in supine position, induced anesthesia. Left hip was prepped and draped in usual sterile fashion access through incisio n centered over the tip of the greater trochanter. Awl was placed. Biplanar radiography reviewed to place a guidewire single stage reaming for 9 x 130 nail. A 105 mm lag screw was placed under biplan ar radiography in the subchondral bone and center portion of the femoral neck and head. A 36 mm inte rlocking screw was placed. The patient had a layered closure performed and should be in the recovery room shortly. LILI/DARLIN Voice ID: [id number] Report ID: [id number]
--- NOTE | 2020-03-10 13:51 | RAD REPORT ---
EXAM DESCRIPTION: RAD - Hip In Or - 03/10/2020 1:44 pm CLINICAL HISTORY: IM RODDING COMPARISON: Pelvis dated 03/09/2020 FINDINGS: Fluoroscopy time 1.8 minutes.
[2020-03-10] MEDS ORDERED: ONDANSETRON 4 MG/2 ML VIAL IV PRN (13:59)
--- NOTE | 2020-03-10 14:32 | RAD REPORT ---
EXAM DESCRIPTION: RAD - Pelvis - 03/10/2020 2:12 pm CLINICAL HISTORY: S/P LEFT IM NAILING COMPARISON: Hip In Or dated 03/10/2020 FINDINGS: Intramedullary hermila has been placed in the proximal left femur. No unexpected postoperative finding seen. Hardware alignment and positioning is as expected.
[2020-03-10] MEDS: NACHLORIDE 0.45% 1,000 ML IV SCH (16:27)
[2020-03-10] MEDS ORDERED: MAGNESIUM HYDROXIDE 8% 30 ML PO PRN (16:53)
--- NOTE | 2020-03-10 16:57 | P.PN ---
Subjective Date of Service: 03/10/20 Chief Complaint: With history of falls, pain in left hip Subjective: Demented Physical Examination - Vital Signs Temperature: 98.4 F Blood Pressure: 103/82 Pulse: 76 Respirations: 18 Pulse Ox (%): 98 - Physical Exam General: Alert, Demented Neck: Supple Respiratory: Clear to auscultation bilaterally, Normal air movement Cardiovascular: Normal pulses, Regular rate/rhythm Neurological: Dementia Assessment & Plan Discharge Plan: [facility] Plan to discharge in: Greater than 2 days Physician Review Additional Text: Impression: Fall with left intertrochanteric femur fracture Dementia with behavioral disorder Plan: Orthopedics will plan for surgery today. Will continue monitor closely. After surgery will need to continue with DVT prophylaxis. Will also start physical therapy if possible. Patient was severe dementia. Restart jail medications. Will discuss with family about plan of care, advanced directives and advance care planning. Will continue to monitor closely. Time Spent Managing Pts Care (In Minutes): 55
[2020-03-10] MEDS ORDERED: QUETIAPINE 100MG TAB PO SCH (21:00)
[2020-03-10] MEDS: MENTHOL TOP SCH (21:00)
[2020-03-10] MEDS: CAMPHOR TOP SCH (21:00)
[2020-03-10] MEDS: [UNRECOGNIZED DRUG - OTHER] TOP SCH (21:00)
[2020-03-10] MEDS: DIVALPROEX NA 125 MG CAP PO SCH (22:29)
[2020-03-11] MEDS: HYDROCODONE/APAP 5/325 MG TAB PO PRN ×2 (00:09→20:16)
[2020-03-11] MEDS: NACHLORIDE 0.45% 1,000 ML IV SCH ×3 (02:30→15:00)
[2020-03-11 04:28] LABS: Absolute Lymphocytes (CBC) 1.3 K/uL (0.7-4.9); Basophils % 0.3 % (0-1.3); Hematocrit 27.3 % (39.6-49.0); Lymphocytes % 14.5 % (15.3-44.8); MPV 8.4 fL (7.6-11.3); RBC Red Blood Cell Count 3.04 M/uL (4.33-5.43)
[2020-03-11 04:52] LABS: BUN Blood Urea Nitrogen 12 mg/dL (7-18); Bicarbonate 31 mmol/L (21-32); Glucose Level 117 mg/dL (74-106); Potassium 3.2 mmol/L (3.5-5.1); Sodium Level 141 mmol/L (136-145)
[2020-03-11] MEDS ORDERED: ENOXAPARIN 30 MG/0.3 ML SQ SCH (08:00)
[2020-03-11] MEDS: DIVALPROEX NA 125 MG CAP PO SCH ×2 (08:58→20:16)
[2020-03-11] MEDS: [UNRECOGNIZED DRUG - OTHER] TOP SCH ×3 (08:59→20:16)
[2020-03-11] MEDS: DOCUSATE NA 100 MG CAP PO SCH (08:59)
[2020-03-11] MEDS: CAMPHOR TOP SCH ×3 (08:59→20:16)
[2020-03-11] MEDS: MENTHOL TOP SCH ×3 (08:59→20:16)
[2020-03-11] MEDS ORDERED: ENOXAPARIN 40 MG/0.4 ML SQ SCH (09:00)
[2020-03-11] MEDS ORDERED: QUETIAPINE 100MG TAB PO SCH (09:00)
[2020-03-11] MEDS ORDERED: QUETIAPINE 100MG TAB PO PRN (15:53)
--- NOTE | 2020-03-11 15:58 | P.PN ---
Subjective Date of Service: 03/11/20 Chief Complaint: With history of falls, pain in left hip Subjective: Demented Physical Examination - Vital Signs Temperature: 97.6 F Blood Pressure: 94/62 Pulse: 117 Respirations: 18 Pulse Ox (%): 97 - Physical Exam General: Alert, Demented HEENT: Atraumatic Neck: Supple Respiratory: Clear to auscultation bilaterally, Normal air movement Cardiovascular: Normal pulses, Regular rate/rhythm Gastrointestinal: Normal bowel sounds Neurological: Other (Increase sedation), Dementia - Studies Medications List Reviewed: Yes Assessment & Plan Discharge Plan: Residential Plan to discharge in: 48 Hours - Code Status/Comfort Care Code Status Assessed: Yes (Patient is do not resuscitate.) Physician Review Additional Text: Impression: Fall with left intertrochanteric femur fracture Dementia with behavioral disorder Thrombocytopenia Plan: Patient had surgery yesterday. Patient with increase sedation. Platelet count low at this time. May need to hold Lovenox if platelet count less than 90. Spoke with [id number] who has medical power of contracts attorney. Sever quell is a new medication. This may be causing some thrombocytopenia. This medication she reports was started about 3 months ago. Prior lab shows normal platelet count. Will discontinue Seroquel 300 mg at night. Continue Seroquel daily but hold with increase sedation. Will monitor platelet count closely. Advanced care directives addressed in detail. Patient is do not resuscitate. Plan of care will be to send the patient back to the intermediate at discharge. Advance care planning-30 min. Time Spent Managing Pts Care (In Minutes): 55
--- NOTE | 2020-03-11 18:46 | P.PN ---
Subjective Date of Service: 03/11/20 Chief Complaint: With history of falls, pain in left hip Subjective: No new changes (awake alert and nonverbal,) Review of Systems is unable to be obtained Physical Examination - Vital Signs Temperature: 98.6 F Blood Pressure: 117/57 Pulse: 115 Respirations: 18 Pulse Ox (%): 96 - Physical Exam Musculoskeletal: Other (dressings c/d/i) - Studies Medications List Reviewed: Yes Assessment And Plan - Current Problems (Diagnosis) (1) Fracture, intertrochanteric, left femur Onset Date: ~03/08/20 Current Visit: Yes Status: Acute Plan: s/p left hip IM rodding touch down weight baring only for 6 weeks post op. he will need anticoagulation for 28 days post op. he will need inpatient care rehabe or nursing facility, follow up in he office 2 weeks postop Qualifiers: Encounter type: initial encounter Fracture type: closed Fracture alignment: nondisplaced Qualified Code(s): S72.145A - Nondisplaced intertrochanteric fracture of left femur, initial encounter for closed fracture Plan to discharge in: 24 Hours Physician Review Additional Text: Impression: Fall with left intertrochanteric femur fracture Dementia with behavioral disorder Thrombocytopenia Plan: Patient had surgery yesterday. Patient with increase sedation. Platelet count low at this time. May need to hold Lovenox if platelet count less than 90. Spoke with [id number] who has medical power of grocery shopper. Sever quell is a new medication. This may be causing some thrombocytopenia. This medication she reports was started about 3 months ago. Prior lab shows normal platelet count. Will discontinue Seroquel 300 mg at night. Continue Seroquel daily but hold with increase sedation. Will monitor platelet count closely. Advanced care directives addressed in detail. Patient is do not resuscitate. Plan of care will be to send the patient back to the [facility] at discharge. Advance care planning-30 min.
[2020-03-12 04:43] LABS: Absolute Lymphocytes (CBC) 1.6 K/uL (0.7-4.9); Basophils % 0.3 % (0-1.3); Hematocrit 28.6 % (39.6-49.0); Lymphocytes % 14.3 % (15.3-44.8); MPV 8.2 fL (7.6-11.3); RBC Red Blood Cell Count 3.22 M/uL (4.33-5.43)
[2020-03-12 04:57] LABS: BUN Blood Urea Nitrogen 17 mg/dL (7-18); Bicarbonate 33 mmol/L (21-32); Glucose Level 99 mg/dL (74-106); Potassium 3.2 mmol/L (3.5-5.1); Sodium Level 140 mmol/L (136-145)
[2020-03-12] MEDS: [UNRECOGNIZED DRUG - OTHER] TOP SCH ×3 (09:00→21:00)
[2020-03-12] MEDS: MENTHOL TOP SCH ×3 (09:00→21:00)
[2020-03-12] MEDS: CAMPHOR TOP SCH ×3 (09:00→21:00)
--- NOTE | 2020-03-12 09:09 | P.PN ---
Subjective Date of Service: 03/12/20 Chief Complaint: With history of falls, pain in left hip Subjective: Demented Physical Examination - Vital Signs Temperature: 98.0 F Blood Pressure: 153/74 Pulse: 84 Respirations: 18 Pulse Ox (%): 94 - Physical Exam General: Alert, Demented HEENT: Atraumatic Neck: Supple Respiratory: Clear to auscultation bilaterally, Normal air movement Cardiovascular: Normal pulses, Regular rate/rhythm Gastrointestinal: Normal bowel sounds Neurological: Normal strength at 5/5 x4 extr, Normal tone, Dementia (Severe dementia) - Studies Medications List Reviewed: Yes Assessment & Plan Discharge Plan: Assisted Plan to discharge in: 24 Hours Physician Review Additional Text: Impression: Fall with left intertrochanteric femur fracture status post intra medullary rodding Advanced Dementia with behavioral disorder Thrombocytopenia Plan: Fall with left intertrochanteric femur fracture status post intra medullary rodding: Continue current plan of care. Case discussed in detail with [id number] who has medical power of deputy commonwealth's attorney. Patient is do not resuscitate. Await to see if physical therapy has made any progress with patient. Suspect patient not a candidate for inpatient rehab or skilled therapy due to his severe dementia. If no significant change for possible improvement on physical therapy then the patient will likely return to the shelter at the memory care unit. Patient may require hospice in the near future if no significant change. This may be his new baseline. Will discuss with family. Advanced Dementia with behavioral disorder: Medications reviewed. Will discontinue Seroquel due to increased sedation. This also may be causing his thrombocytopenia. Thrombocytopenia improved, will monitor closely. Will try to eliminate any medication that may cause increased sedation. Thrombocytopenia: This has improved. This may be related to his sever quell medication. This has been discontinued. Will continue monitor closely. Time Spent Managing Pts Care (In Minutes): 55
[2020-03-12] MEDS: DIVALPROEX NA 125 MG CAP PO SCH ×2 (09:29→21:51)
[2020-03-12] MEDS: ENOXAPARIN 40 MG/0.4 ML SQ SCH (09:30)
[2020-03-12] MEDS: DOCUSATE NA 100 MG CAP PO SCH (09:30)
[2020-03-13] MEDS: DOCUSATE NA 100 MG CAP PO SCH ×2 (07:55→09:00)
[2020-03-13] MEDS: ENOXAPARIN 40 MG/0.4 ML SQ SCH (07:55)
[2020-03-13] MEDS: [UNRECOGNIZED DRUG - OTHER] TOP SCH ×2 (07:59→14:00)
[2020-03-13] MEDS: MENTHOL TOP SCH ×2 (07:59→14:00)
[2020-03-13] MEDS: CAMPHOR TOP SCH ×2 (07:59→14:00)
[2020-03-13] MEDS: DIVALPROEX NA 125 MG CAP PO SCH (09:00)
--- NOTE | 2020-03-13 09:36 | P.DS ---
Admission Date: 03/09/20 Discharge Date: 03/13/20 Primary Care Provider: half-way Disposition: TRANSFER TO [facility] Discharge Condition: GOOD Reason for Admission: With history of falls, pain in left hip Consultations: Orthopedics-Dr. Quiroz Procedures: CT Head: FINDINGS: No intracranial hemorrhage, hydrocephalus or extra-axial fluid collection.Mild generalized brain atrophy is present with advanced periventricular and deep white matter chronic microvascular ischemic changes.No areas of brain edema or evidence of midline shift. The paranasal sinuses and mastoids are clear. The calvarium is intact. IMPRESSION: No acute intracranial abnormality. Xray: COMPARISON: No comparisons FINDINGS: Intratrochanteric fracture the proximal left femur is seen with varus angulation. No dislocation evident. Surgery: Surgeon: Blake Garza MD Stereotyper Apprentice: contact lens assistantWilliams. Preoperative Diagnosis: Left intertrochanteric hip fracture. Postoperative Diagnosis: Left intertrochanteric hip fracture. Procedure Performed: Intramedullary rodding, left intertrochanteric hip fracture. Complications: None. Medical problem list: Fall with left intertrochanteric femur fracture status post intra medullary rodding Advanced Dementia with behavioral disorder Thrombocytopenia Brief History of Present Illness: 74-year-old male with past medical history of advanced dementia [facility] after suffering a fall from upright position. Patient apparently had been falling a lot. Patient was evaluated in the emergency room. Patient found to have left intertrochanteric hip fracture. Patient admitted for treatment. Hospital Course: [facility]. Patient with advanced dementia with some behavioral disorder. Patient found to have left intertrochanteric femur fracture. Patient was admitted for treatment. Patient seen and evaluated by orthopedics. Surgery was recommended. Intra medullary rodding was performed. Patient tolerated procedure well. His medications for dementia were adjusted during his stay. Seroquel was discontinued due to increased sedation. Patient now more alert. Patient has done very little with physical therapy. His progress may be slow. [facility]. Care discussed with family and social work. Patient [facility]. They will proceed with skilled therapy. Physical therapy/orthopedics recommends touchdown weight-bearing for 6 weeks. Fall precautions in place. Will recommend Lovenox 30 mg subcu daily for 14 days. Patient may take Tylenol as needed for pain. A limited supply of tramadol 50 mg 3 times a day as needed for pain will be provided. Patient will need a follow up with orthopedics in 2 weeks. Physical therapy/skilled therapy will likely be difficult due to his dementia. May need to consider hospice in the future if his condition does not improved. Patient with advanced dementia with behavioral disorder. Medications were adjusted during his stay due to increased sedation. Seroquel had been started in the past 3 months [facility] the [facility]. This likely was use to help with his behavioral disorder. This may be causing the increased sedation here in the hospital. Platelet count also found to be low. Prior to December platelet count was normal. Seroquel likely the cause of both increase sedation and thrombocytopenia. Medication was discontinued. This was discussed in detail with family. Patient without increased sedation at this time since Seroquel has been discontinued. Will recommend at discharge for the Seroquel to be discontinued entirely. At discharge patient may continue with Depakote 1000 mg 1 pill twice daily. Further adjustment in his medication can be done at the [facility]. As mentioned above will need to consider hospice if his condition continues to decline. Will address with family. Recommend to recheck lab-CBC in 2-4 weeks to monitors progress. Vital Signs/Physical Exam: Temp Pulse Resp BP Pulse Ox 97.6 F 114 H 18 129/62 92 03/13/20 04:00 03/13/20 04:00 03/13/20 04:00 03/13/20 04:00 03/13/20 04:00 General: Alert, Demented (Severe dementia) HEENT: Atraumatic Neck: Supple Respiratory: Clear to auscultation bilaterally, Normal air movement Cardiovascular: Normal pulses, Regular rate/rhythm Gastrointestinal: No guarding Neurological: Normal strength at 5/5 x4 extr, Normal tone, Dementia (Severe dementia) Laboratory Data at Discharge: WBC 11.0 K/uL (4.3-10.9) H D 03/12/20 04:20 Hgb 10.2 g/dL (13.6-17.9) L 03/12/20 04:20 Hct 28.6 % (39.6-49.0) L 03/12/20 04:20 Plt Count 93 K/uL (152-406) L D 03/12/20 04:20 PT 11.6 SECONDS (9.5-12.5) 03/09/20 11:05 INR 0.98 03/09/20 11:05 APTT 27.3 SECONDS (24.3-36.9) 03/09/20 11:05 Sodium 140 mmol/L (136-145) 03/12/20 04:20 Potassium 3.2 mmol/L (3.5-5.1) L 03/12/20 04:20 BUN 17 mg/dL (7-18) 03/12/20 04:20 Creatinine 0.65 mg/dL (0.55-1.3) 03/12/20 04:20 Glucose 99 mg/dL (74-106) 03/12/20 04:20 Total Bilirubin 0.6 mg/dL (0.2-1.0) 03/10/20 05:41 AST 39 U/L (15-37) H 03/10/20 05:41 ALT 27 U/L (12-78) 03/10/20 05:41 Alkaline Phosphatase 67 U/L (45-117) 03/10/20 05:41 Home Medications: Acetaminophen [Tylenol] 650 mg PO Q6HP PRN 03/09/20 Divalproex [Depakote Sprinkle*] 1,000 mg PO BID 03/09/20 Docusate [Colace Cap*] 100 mg PO DAILY 03/09/20 Mag Hydroxide 8% [Milk Of Magnesia*] 400 mg PO DAILY PRN 03/09/20 Menthol/Camphor [Biofreeze with Ilex Gel] 120 gm TP TID 03/09/20 Enoxaparin Sodium [Lovenox 30 MG INJ] 30 mg SQ DAILY #14 syr 03/13/20 traMADol HCL [Ultram*] 50 mg PO TID PRN #15 tab 03/13/20 New Medications: Enoxaparin Sodium [Lovenox 30 MG INJ] 30 mg SQ DAILY #14 syr traMADol HCL [Ultram*] 50 mg PO TID PRN #15 tab PRN Reason: Pain Patient Discharge Instructions: 1. Patient to [facility] with possible skilled therapy. 2. Patient presented [facility] a [facility]. Patient with advanced dementia with some behavioral disorder. Patient found to have left intertrochanteric femur fracture. Patient was admitted for treatment. Patient seen and evaluated by orthopedics. Surgery was recommended. Intra medullary rodding was performed. Patient tolerated procedure well. His medications for dementia were adjusted during his stay. Seroquel was discontinued due to increased sedation. Patient now more alert. Patient has done very little with physical therapy. His progress may be slow. [facility] will [facility]. Care discussed with family and social work. Patient lives in [facility]. They will proceed with skilled therapy. Physical therapy/orthopedics recommends touchdown weight- bearing for 6 weeks[address] precautions in place. Will recommend Lovenox 30 mg subcu daily for 14 days. Patient may take Tylenol as needed for pain. A limited supply of tramadol 50 mg 3 times a day as needed for pain will be provided. Patient will need a follow up with orthopedics in 2 weeks. Physical therapy/skilled therapy will likely be difficult due to his dementia. May need to consider hospice in the future if his condition does not improved. 3. Patient with advanced dementia with behavioral disorder. Medications were adjusted during his stay due to increased sedation. Seroquel had been started in the past 3 months at the [facility]. This likely was use to help with his behavioral disorder. This may be causing the increased sedation here in the [facility]. Platelet count also found to be low. Prior to December platelet count was normal. Seroquel likely the cause of both increase sedation and thrombocytopenia. Medication was discontinued. This was discussed in detail with family. Patient without increased sedation at this time since Seroquel has been discontinued. Will recommend at discharge for the Seroquel to be discontinued entirely. At discharge patient may continue with Depakote 1000 mg 1 pill twice daily. Further adjustment in his medication can be done at the [facility]. As mentioned above will need to consider hospice if his condition continues to decline. Will address with family. Recommend to recheck lab-CBC in 2-4 weeks to monitors progress. Diet: Mechanical Activity: Fall precautions Followup: Esteban Kan MD [Primary Care Provider] - Time spent managing pt's care (in minutes): 55
[2020-03-13 10:15] VITALS: O2SAT 98
[2020-03-13 15:07] VITALS: BP 132/68; TEMP 97.3
== END 2020-03-13 15:27 | DRG 480 ==
LOC: ER 10:24 → ERHOLD 12:06 → 2ND 13:13
PROVIDERS: ADMIT Family Medicine; ATTEND Family Medicine
PROC: 0QH706Z Insertion of Intramedullary Internal Fixation Device into Left Upper Femur, Open Approach (ICD-10-PCS; principal; 2020-03-10 11:00)
DX: S72.145A Nondisplaced intertrochanteric fracture of left femur, initial encounter for closed fracture (principal); G92 Toxic encephalopathy; F03.91 Unspecified dementia, unspecified severity, with behavioral disturbance; D69.59 Other secondary thrombocytopenia; T43.595A Adverse effect of other antipsychotics and neuroleptics, initial encounter; R00.0 Tachycardia, unspecified; W18.30XA Fall on same level, unspecified, initial encounter; Z79.899 Other long term (current) drug therapy; Z91.81 History of falling; Z66 Do not resuscitate; Z20.828 Contact with and (suspected) exposure to other viral communicable diseases
CPT/HCPCS: 36415; 70450; 72170; 73530; 80048; 80053; 83010; 83615; 85025; 85610; 85730; 96374; 96375; 99285; J0690; J1650; J2270; J2370; J2405; J2704; J3010; J7030; U0002